=== PATIENT | male | born 1975 | race Caucasian/White ===

== ENCOUNTER 2017-09-28 18:26 | Inpatient (IN) | payer BC ==
[~2017-09-28] VITALS: Ht 182.9 cm; Wt 128.5 kg
[2017-09-28] VITALS (9 sets, daily range): BP systolic 95–135; BP diastolic 58–88; PULSE 82–96; TEMP 36.9–37; O2SAT 95–98; Ht 182.9 cm; Wt 128.5 kg
[2017-09-28] MEDS ORDERED: SODIUM CHLORIDE 0.9% 1000ML 1,000 ML IV SCH (18:28)
--- NOTE | 2017-09-28 18:31 | EMERGENCY ROOM VISIT NOTE ---
History Report prepared by Kady: Omar Rene Under the Supervision of: Dr. Brayden Quintana D.O. First contact with patient: 18:28 Stated Complaint: STROKE SX History of Present Illness The patient is a 41 year old male who presents to the Emergency Room with complaints of constant right sided weakness beginning about one hour ago. He currently rates his discomfort an 8/10 in severity. The patient states [place] He reports he developed neck pain in the back of his neck. The patient notes his symptoms increased to a severe headache in the back of his head. He states he went to lay down in the car because he thought it was a migraine. The patient reports he was feeling well before today. He notes he tried to get out of the car after lying down, and he could not move his body. The patient states his breathing is heavy, and he does not know if it is because he is anxious. He denies visiting a chiropractor recently , chest pain, nausea, and vomiting. EMS states the patient was sensitive to light and lying in the truck made him feel better. They reports his last time know well was 1716. Source of History: patient Onset: one hour ago Position: other (right sided) Symptom Intensity: 8/10 Quality: other (weakness) Timing: constant Modifying Factors (Relieving): other (lying down) Associated Symptoms: No chest pain, No nausea, No vomiting Note: Associated symptoms: heavy breathing Review of Systems See HPI for pertinent positives & negatives. A total of 10 systems reviewed and were otherwise negative. Past Medical & Surgical Family History Patient reports no known family medical history. Social History Alcohol Use: occasionally Marital Status: Occupation Status: employed Current/Historical Medications Scheduled Aspirin (Aspirin), 1 TAB PO DAILY Atorvastatin (Lipitor), 40 MG PO QAM Cetirizine (Zyrtec), 10 MG PO QAM Esomeprazole Magnesium (Nexium), 20 MG PO DAILY Fluticasone Propionate (Nasal) (Flonase Allergy Relief), 1 SPRAY MARIA DAILY Allergies Coded Allergies: No Known Allergies (Unverified , 09/28/17) Physical Exam Vital Signs Date Time Temp Pulse Resp B/P (MAP) Pulse Ox O2 Delivery O2 Flow Rate FiO2 09/28/17 19:57 37.0 96 20 128/88 95 Room Air 09/28/17 19:46 37.0 98 21 128/88 93 Room Air 09/28/17 19:30 37.0 102 22 113/79 97 Room Air 09/28/17 19:21 115 09/28/17 19:16 155/95 09/28/17 19:15 102 19 96 09/28/17 19:10 96 16 94 09/28/17 19:07 Room Air 09/28/17 19:05 95 26 96 09/28/17 19:01 141/83 09/28/17 18:33 96 28 144/91 Room Air Physical Exam GENERAL: Patient is awake, alert, and in no acute distress. Patient is resting comfortably and is very anxious appearing. EYES: The conjunctivae are clear. The pupils are round and reactive. EARS, NOSE, MOUTH AND THROAT: The nose is without any evidence of any deformity. Mucous membranes are moist tongue is midline NECK: The neck is nontender and supple. No bruit to auscultation. RESPIRATORY: Normal respiratory effort is noted there is no evidence of wheezing rhonchi or rales CARDIOVASCULAR: Regular rate and rhythm noted there no murmurs rubs or gallops normal S1 normal S2 GASTROINTESTINAL: The abdomen is soft. Bowel sounds are present in all quadrants. Abdomen is nontender MUSCULOSKELETAL/EXTREMITIES: There is no evidence of gross deformity full range of motion is noted in the hips and shoulders SKIN: There is no obvious evidence of any rash. There are no petechiae, pallor or cyanosis noted. NEUROLOGIC: Awake, alert, and oriented x 3. No facial droop appreciated. Patient is unable to lift right leg off the bed against gravity. The patient is able to lift left leg properly. 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 Medical Decision & Procedures ER Provider Diagnostic Interpretation: Radiology results as stated below per my review and radiologist interpretation: CT SCAN OF THE BRAIN WITHOUT IV CONTRAST CLINICAL HISTORY: Strokelike symptoms. COMPARISON STUDY: No priors. TECHNIQUE: Unenhanced axial CT scan of the brain is performed from the vertex to the skull base. A dose lowering technique was utilized adhering to the principles of ALARA. CT DOSE: 614.27 mGy.cm FINDINGS: Brain parenchyma: The brain parenchyma is normal in appearance. There is no hemorrhage, mass effect, or evidence of acute territorial ischemia by CT criteria. Montoya-white matter is preserved. No extra-axial fluid collection is seen. Ventricles, sulci, cisterns: Normal in configuration. Intracranial vasculature: The visualized intracranial vasculature at the skull base is normal in appearance. Calvarium: Unremarkable. Sinuses and mastoids: Trace mucosal thickening is seen in the left maxillary antrum. The remaining visualized paranasal sinuses are clear. There is a small left mastoid effusion. The right mastoid air cells are well pneumatized. Orbits: The bony orbits are grossly intact. IMPRESSION: There is no hemorrhage, mass effect, or evidence of acute territorial ischemia by CT criteria. Electronically signed by: Luis Varela M.D. 09/28/2017 6:37 PM Dictated Date/Time: 09/28/2017 6:35 PM SINGLE VIEW CHEST CLINICAL HISTORY: Strokelike symptoms. FINDINGS: An AP, portable, upright chest radiograph is obtained. No prior studies are available for comparison at the time of dictation. The examination is degraded by portable technique and patient rotation. The heart is top normal for projection. The pulmonary vasculature is noncongested. No airspace consolidation or large pleural effusion is identified. No pneumothorax is seen. The bony thorax is grossly intact. Surgical anchors are noted in the humeral heads. IMPRESSION: No acute cardiopulmonary abnormality. Electronically signed by: Luis Varela M.D. 09/28/2017 7:49 PM Dictated Date/Time: 09/28/2017 7:[address] ANGIOGRAM OF THE BRAIN; CT ANGIOGRAM OF THE NECK CLINICAL HISTORY: Strokelike symptoms. COMPARISON STUDY: Unenhanced CT of the brain performed the same day 09/28/2017. TECHNIQUE: Following the IV administration of 118 of Optiray 320, CT angiogram of the head and neck was performed from the aortic arch to the vertex. Images are reviewed in the axial, sagittal, and coronal planes. 3-D MIPS images are created and assessed. IV contrast was administered without complication. All measurements were calculated based on NASCET criteria. A dose lowering technique was utilized adhering to the principles of ALARA. CT DOSE: 673.41 mGy.cm FINDINGS: Brain parenchyma: The brain parenchyma is normal in appearance. There is no hemorrhage, mass effect, or evidence of acute territorial ischemia by CT criteria. There is no evidence of enhancing mass lesion on the angiogram phase images. The ventricles, sulci, and cisterns are normal in configuration. Montoya-white matter differentiation is preserved. No extra-axial fluid collection is seen. Thoracic aorta: Visualized portions of the thoracic aorta are normal in caliber. The aortic arch demonstrates bovine anatomy. Right carotid arterial system: The right common carotid artery is widely patent, as are the right internal and external carotid arteries. No dissection is seen. Left carotid arterial system: The left common carotid artery is widely patent, as are the left internal and external carotid arteries. No dissection is seen. Vertebral arteries: The vertebral arteries are patent bilaterally. The right vertebral artery is diminutive and terminates in the right cervical soft tissues. Subclavian arteries: Widely patent bilaterally. Intracranial vasculature: There are large bilateral posterior communicating arteries. The internal carotid arteries are patent at the skull base, as are the anterior and middle cerebral arteries bilaterally. The vertebrobasilar system is diminutive. The basilar artery is patent, as are the posterior cerebral arteries. The left vertebral artery is dominant and supplies the right PICA. The right vertebral artery terminates in the posterior cervical soft tissues. There is no aneurysm, high-grade stenosis, or focal vessel cut off seen throughout the intracranial circulation. Jugular veins: Patent bilaterally. Dural sinuses: Patent. Lung apices: Partially visualized upper lobe lung parenchyma appears clear. Soft tissues: The visualized pharyngeal soft tissues are normal in appearance noting angiographic phase technique. The oropharyngeal airway appears widely patent. The salivary and thyroid glands are normal in appearance. No cervical lymphadenopathy is seen. Skeletal structures: The calvarium appears intact. The cervical spine is within normal limits. Sinuses and mastoids: Trace mucosal thickening is seen in the maxillary antra. The remaining paranasal sinuses are clear. There is a small left mastoid effusion. The right mastoid air cells are well pneumatized. IMPRESSION: 1. There is no evidence of hemorrhage, mass effect, or acute territorial ischemia by CT criteria. 2. Unremarkable CT angiogram of the brain. 3. Unremarkable CT angiogram of the neck. 4. The right vertebral artery is diminutive and terminates in the right posterior cervical soft tissues. Electronically signed by: Luis Varela M.D. 09/28/2017 7:23 PM Dictated Date/Time: 09/28/2017 7:12 PM Laboratory Results 09/28/17 18:42 Red Blood Count 5.16, Mean Corpuscular Volume 84.3, Mean Corpuscular Hemoglobin 29.5, Mean Corpuscular Hemoglobin Concent 34.9, Mean Platelet Volume 8.8, Neutrophils (%) (Auto) 65.1, Lymphocytes (%) (Auto) 24.9, Monocytes (%) (Auto) 6.9, Eosinophils (%) (Auto) 2.8, Basophils (%) (Auto) 0.2, Neutrophils # (Auto) 5.67, Lymphocytes # (Auto) 2.17, Monocytes # (Auto) 0.60, Eosinophils # (Auto) 0.24, Basophils # (Auto) 0.02 09/28/17 18:42 Test 09/28/17 18:42 09/28/17 18:46 09/28/17 19:01 09/28/17 19:25 White Blood Count 8.71 K/uL (4.8-10.8) Red Blood Count 5.16 M/uL (4.7-6.1) Hemoglobin 15.2 g/dL (14.0-18.0) Hematocrit 43.5 % (42-52) Mean Corpuscular Volume 84.3 fL (80-100) Mean Corpuscular Hemoglobin 29.5 pg (25-34) Mean Corpuscular Hemoglobin Concent 34.9 g/dl (32-36) Platelet Count 235 K/uL (130-400) Mean Platelet Volume 8.8 fL (7.4-10.4) Neutrophils (%) (Auto) 65.1 % Lymphocytes (%) (Auto) 24.9 % Monocytes (%) (Auto) 6.9 % Eosinophils (%) (Auto) 2.8 % Basophils (%) (Auto) 0.2 % Neutrophils # (Auto) 5.67 K/uL (1.4-6.5) Lymphocytes # (Auto) 2.17 K/uL (1.2-3.4) Monocytes # (Auto) 0.60 K/uL (0.11-0.59) Eosinophils # (Auto) 0.24 K/uL (0-0.5) Basophils # (Auto) 0.02 K/uL (0-0.2) RDW Standard Deviation 38.8 fL (36.4-46.3) RDW Coefficient of Variation 12.7 % (11.5-14.5) Immature Granulocyte % (Auto) 0.1 % Immature Granulocyte # (Auto) 0.01 K/uL (0.00-0.02) Prothrombin Time 10.4 SECONDS (9.0-12.0) Prothromb Time International Ratio 1.0 (0.9-1.1) Activated Partial Thromboplast Time 26.6 SECONDS (21.0-31.0) Partial Thromboplastin Ratio 1.0 Est Creatinine Clear Calc Drug Dose 129.4 ml/min Estimated GFR () 101.0 Estimated GFR (Non- 87.1 BUN/Creatinine Ratio 13.1 (10-20) Calcium Level 8.9 mg/dl (8.5-10.1) Magnesium Level 2.4 mg/dl (1.8-2.4) Total Creatine Kinase 282 U/L (39-308) Creatine Kinase MB 2.9 ng/ml (0.5-3.6) Troponin I < 0.015 ng/ml (0-0.045) Ethyl Alcohol mg/dL 104.0 mg/dl (0-3) Bedside Hemoglobin 14.3 g/dl (14.0-18.0) Bedside Hematocrit 42 % (42-52) Bedside Sodium 142 mEq/L (135-144) Bedside Potassium 4.2 mEq/L (3.3-5.0) Bedside Chloride 106 mEq/L (101-112) Bedside Total CO2 25 mEq/l (24-31) Anion Gap 17.0 mmol/L (16-25) Bedside Blood Urea Nitrogen 14 mg/dl (7-18) Bedside Creatinine 1.1 mg/dl (0.6-1.3) Bedside Glucose (other) 105 mg/dl (70-99) Bedside Ionized Calcium (Fab) 1.13 mmol/l (1.12-1.32) Bedside Glucose 102 mg/dl (70-99) Urine Opiates Screen NEG (NEG) Urine Methadone, Qualitative NEG (NEG) Urine Barbiturates NEG (NEG) Urine Phencyclidine (PCP) Level NEG (NEG) Ur Amphetamine/Methamphetamine NEG (NEG) MDMA (Ecstasy) Screen NEG (NEG) Urine Benzodiazepines Screen NEG (NEG) Urine Cocaine Metabolite NEG (NEG) Urine Marijuana (THC) NEG (NEG) Test 09/28/17 20:00 Laboratory results per my review. Medications Administered Medications (Trade) Dose Ordered Sig/Omayra Route Start Time Stop Time Status Last Admin Dose Admin Sodium Chloride 1,000 ml @ 50 mls/hr Q20H IV 09/28/17 18:28 09/28/17 22:17 DC 09/28/17 19:08 50 MLS/HR Alteplase, Recombinant 81 mg/ Empty Bag 81 ml @ 81 mls/hr ONE ONCE IV 09/28/17 19:00 09/28/17 19:59 DC 09/28/17 19:30 81 MLS/HR Alteplase, Recombinant 9 mg/ Syringe 9 ml @ 9 mls/min ONE ONCE IV 09/28/17 19:00 09/28/17 19:01 DC 09/28/17 19:28 9 MLS/MIN Acetaminophen (Tylenol Tab) 1,000 mg STK-MED ONCE PO 09/28/17 19:54 09/28/17 19:55 DC 09/28/17 19:57 1,000 MG Acetaminophen (Tylenol Tab) 650 mg Q4H PRN PO 09/28/17 20:00 09/29/17 13:05 DC 09/29/17 12:32 650 MG ECG Per My Interpretation Indication: weakness Rate (beats per minute): 89 Rhythm: normal sinus Findings: no ectopy, other (No acute ST segment abn) Comparison ECG Date: no prior available ED Course 1826: The patient was evaluated in room B01. A complete history and physical examination were performed. 1827: Ordered NSS 1,000 ml @ 50 mls/hr IV 1846: I discussed the patient's case with Dr. Penny, [facility]. The patient will be evaluated for a stroke work-up. 1899: Ordered Alteplase, Recombinant 9 mg/Syringe 9 ml @ 9 mls/min IV, Alteplase , Recombinant 81 mg/Syringe 81 ml @ 81 mls/min IV 1913: I attempted to reevaluate the patient, but he was being evaluated by Dr. Penny. 1918: I discussed the risks and benefits of administering t-PA to the patient. He verbalized consent. 1943: I updated Dr. Penny of the patient's status and t-PA administration. 1944: I discussed the patient's case with Dr. Lafleur, [facility] Hospitalist. The patient will be evaluated for further management and care. 1952: Ordered Acetaminophen 1000mg PO Medical Decision Differential diagnosis: Etiologies such as metabolic, infection, hypo/hyperglycemia, electrolyte abnormalities, cardiac sources, intracerebral event, toxicologic, neurologic, as well as others were entertained. Nursing notes reviewed. Additional history is obtained from the prehospital personnel. Additional history is obtained from the patient's family members. The patient is a 41-year-old male who presented to the emergency department with an acute onset of right-sided weakness. The patient had some degree of neck pain with pain into the base of his skull. He then noticed right-sided weakness. The patient does not have a headache history. There is no history of trauma. The patient's initial CAT scan did not show any acute hemorrhagic infarct. The patient also had a CT angiography of the head and neck with no definite acute disease noted. Given the patient's onset of symptoms I felt he may be a candidate for TPA. For this reason I consulted the [facility] stroke neurologist. The patient was given TPA in the emergency department. He was reevaluated multiple times. I discussed his case with the on-call [facility] [place] hospitalist. They have agreed to evaluate patient in the emergency department for further management and disposition. Medication Reconcilliation Current Medication List: was personally reviewed by me Blood Pressure Screening Patient's blood pressure: Normal blood pressure Blood pressure disposition: Did not require urgent referral Consults Time Called: 1843 Consulting Physician: Dr. Penny [facility] Returned Call: 1846 I discussed the patient's case with Dr. Penny, [facility]. The patient will be evaluated for a stroke work-up. 1943: I updated Dr. Penny of the patient's status and t-PA administration. Additional Consults: Time Called: 1927 Consulted Physician: Dr. Lafleur [facility] Hospitalist Returned Call: 1944 Additional Comments: I discussed the patient's case with Dr. Lafleur [facility] Hospitalist. The patient will be evaluated for further management and care. Impression Primary Impression: CVA (cerebral vascular accident) Additional Impression: Right sided weakness Critical Care I have personally spent greater than 45 minutes of critical care time in the direct management of this patient. This includes bedside care, interpretation of diagnostic studies, and testing, discussion with consultants, patient, and family members, and other required patient management activities. This 45 minutes is in excess of all separately billable procedures. Scribe Attestation The scribe's documentation has been prepared under my direction and personally reviewed by me in its entirety. I confirm that the note above accurately reflects all work, treatment, procedures, and medical decision making performed by me. Departure Information Dispostion Being Evaluated By Hospitalist Prescriptions Aspirin (Aspirin) 325 Mg Ectab 1 TAB PO DAILY, #1 BTL Prov: Aries Pearl M.D. 09/29/17 Atorvastatin (LIPITOR) 40 Mg Tab 40 MG PO QAM, #30 TAB Prov: Aries Pearl M.D. 09/29/17 Referrals No Doctor, Assigned (PCP) Time Last Known Well 1716 Stroke t-PA Criteria Reviewed Meets criteria for t-PA Reason t-PA Not Given Treatment provided - N/A Problem Qualifiers Primary Impression: CVA (cerebral vascular accident) CVA mechanism: unspecified Qualified Codes: I63.9 - Cerebral infarction, unspecified
--- NOTE | 2017-09-28 18:39 | DIAGNOSTIC IMAGING REPORT ---
CT SCAN OF THE BRAIN WITHOUT IV CONTRAST CLINICAL HISTORY: Strokelike symptoms. COMPARISON STUDY: No priors. TECHNIQUE: Unenhanced axial CT scan of the brain is performed from the vertex to the skull base. A dose lowering technique was utilized adhering to the principles of ALARA. CT DOSE: 614.27 mGy.cm FINDINGS: Brain parenchyma: The brain parenchyma is normal in appearance. There is no hemorrhage, mass effect, or evidence of acute territorial ischemia by CT criteria. Montoya-white matter is preserved. No extra-axial fluid collection is seen. Ventricles, sulci, cisterns: Normal in configuration. Intracranial vasculature: The visualized intracranial vasculature at the skull base is normal in appearance. Calvarium: Unremarkable. Sinuses and mastoids: Trace mucosal thickening is seen in the left maxillary antrum. The remaining visualized paranasal sinuses are clear. There is a small left mastoid effusion. The right mastoid air cells are well pneumatized. Orbits: The bony orbits are grossly intact. IMPRESSION: There is no hemorrhage, mass effect, or evidence of acute territorial ischemia by CT criteria. Electronically signed by: Luis Varela M.D. 09/28/2017 6:37 PM Dictated Date/Time: 09/28/2017 6:35 PM
[2017-09-28 18:59] LABS: ISTAT CREATININE 1.1 mg/dl (0.6-1.3); ISTAT IONIZED CALCIUM 1.13 mmol/l (1.12-1.32); ISTAT POTASSIUM 4.2 mEq/L (3.3-5.0)
[2017-09-28] MEDS ORDERED: ALTEPLASE, RECOMBINANT INJ 9 MG in SYRINGE 0 ML IV ONE (19:00)
[2017-09-28] MEDS ORDERED: ALTEPLASE, RECOMBINANT INJ 81 MG in EMPTY BAG 0 ML IV ONE (19:00)
[2017-09-28] MEDS ORDERED: SET 2260-0500 IV ONE (19:00)
[2017-09-28 19:04] LABS: BASO % 0.2 %; BASO ABS # 0.02 K/uL (0-0.2); EOS % 2.8 %; EOS ABS # 0.24 K/uL (0-0.5); HEMATOCRIT 43.5 % (42-52); HEMOGLOBIN 15.2 g/dL (14.0-18.0); IG# 0.01 K/uL (0.00-0.02); LYMPH % 24.9 %; LYMPH ABS # 2.17 K/uL (1.2-3.4); MEAN CELL VOLUME 84.3 fL (80-100); MEAN CORPUSCULAR HEMOGLOBIN 29.5 pg (25-34); MEAN CORPUSCULAR HGB CONC 34.9 g/dl (32-36); MEAN PLATELET VOLUME 8.8 fL (7.4-10.4); MONO % 6.9 %; NEUT % 65.1 %; NEUT ABS # 5.67 K/uL (1.4-6.5); PLATELET COUNT 235 K/uL (130-400); RED CELL DISTRIBUTION WIDTH CV 12.7 % (11.5-14.5); RED CELL DISTRIBUTION WIDTH SD 38.8 fL (36.4-46.3); WHITE BLOOD COUNT 8.71 K/uL (4.8-10.8)
[2017-09-28 19:14] LABS: PTT PATIENT 26.6 SECONDS (21.0-31.0)
[2017-09-28 19:16] LABS: BLOOD UREA NITROGEN 14 mg/dl (7-18); CALCIUM 8.9 mg/dl (8.5-10.1); CARBON DIOXIDE 25 mmol/L (21-32); CREATININE 1.05 mg/dl (0.60-1.40); GLUCOSE 102 mg/dl (70-99); POTASSIUM 4.2 mmol/L (3.5-5.1); SODIUM 141 mmol/L (136-145)
[2017-09-28 19:21] LABS: CKMB 2.9 ng/ml (0.5-3.6)
--- NOTE | 2017-09-28 19:24 | DIAGNOSTIC IMAGING REPORT ---
CT ANGIOGRAM OF THE BRAIN; CT ANGIOGRAM OF THE NECK CLINICAL HISTORY: Strokelike symptoms. COMPARISON STUDY: Unenhanced CT of the brain performed the same day 09/28/2017. TECHNIQUE: Following the IV administration of 118 of Optiray 320, CT angiogram of the head and neck was performed from the aortic arch to the vertex. Images are reviewed in the axial, sagittal, and coronal planes. 3-D MIPS images are created and assessed. IV contrast was administered without complication. All measurements were calculated based on NASCET criteria. A dose lowering technique was utilized adhering to the principles of ALARA. CT DOSE: 673.41 mGy.cm FINDINGS: Brain parenchyma: The brain parenchyma is normal in appearance. There is no hemorrhage, mass effect, or evidence of acute territorial ischemia by CT criteria. There is no evidence of enhancing mass lesion on the angiogram phase images. The ventricles, sulci, and cisterns are normal in configuration. Montoya-white matter differentiation is preserved. No extra-axial fluid collection is seen. Thoracic aorta: Visualized portions of the thoracic aorta are normal in caliber. The aortic arch demonstrates bovine anatomy. Right carotid arterial system: The right common carotid artery is widely patent, as are the right internal and external carotid arteries. No dissection is seen. Left carotid arterial system: The left common carotid artery is widely patent, as are the left internal and external carotid arteries. No dissection is seen. Vertebral arteries: The vertebral arteries are patent bilaterally. The right vertebral artery is diminutive and terminates in the right cervical soft tissues. Subclavian arteries: Widely patent bilaterally. Intracranial vasculature: There are large bilateral posterior communicating arteries. The internal carotid arteries are patent at the skull base, as are the anterior and middle cerebral arteries bilaterally. The vertebrobasilar system is diminutive. The basilar artery is patent, as are the posterior cerebral arteries. The left vertebral artery is dominant and supplies the right PICA. The right vertebral artery terminates in the posterior cervical soft tissues. There is no aneurysm, high-grade stenosis, or focal vessel cut off seen throughout the intracranial circulation. Jugular veins: Patent bilaterally. Dural sinuses: Patent. Lung apices: Partially visualized upper lobe lung parenchyma appears clear. Soft tissues: The visualized pharyngeal soft tissues are normal in appearance noting angiographic phase technique. The oropharyngeal airway appears widely patent. The salivary and thyroid glands are normal in appearance. No cervical lymphadenopathy is seen. Skeletal structures: The calvarium appears intact. The cervical spine is within normal limits. Sinuses and mastoids: Trace mucosal thickening is seen in the maxillary antra. The remaining paranasal sinuses are clear. There is a small left mastoid effusion. The right mastoid air cells are well pneumatized. IMPRESSION: 1. There is no evidence of hemorrhage, mass effect, or acute territorial ischemia by CT criteria. 2. Unremarkable CT angiogram of the brain. 3. Unremarkable CT angiogram of the neck. 4. The right vertebral artery is diminutive and terminates in the right posterior cervical soft tissues. Electronically signed by: Luis Varela M.D. 09/28/2017 7:23 PM Dictated Date/Time: 09/28/2017 7:12 PM
--- NOTE | 2017-09-28 19:50 | DIAGNOSTIC IMAGING REPORT ---
SINGLE VIEW CHEST CLINICAL HISTORY: Strokelike symptoms. FINDINGS: An AP, portable, upright chest radiograph is obtained. No prior studies are available for comparison at the time of dictation. The examination is degraded by portable technique and patient rotation. The heart is top normal for projection. The pulmonary vasculature is noncongested. No airspace consolidation or large pleural effusion is identified. No pneumothorax is seen. The bony thorax is grossly intact. Surgical anchors are noted in the humeral heads. IMPRESSION: No acute cardiopulmonary abnormality. Electronically signed by: Luis Varela M.D. 09/28/2017 7:49 PM Dictated Date/Time: 09/28/2017 7:48 PM
[2017-09-28] MEDS ORDERED: ACETAMINOPHEN 500 MG TAB PO STA (19:53)
[2017-09-28] MEDS ORDERED: ACETAMINOPHEN 500 MG TAB PO ONE (19:54)
[2017-09-28] MEDS ORDERED: ACETAMINOPHEN 325 MG TAB PO PRN (20:00)
[2017-09-28] MEDS ORDERED: LORAZEPAM 2 MG/ML 1 ML VIAL IV PRN (20:00)
[2017-09-28] MEDS ORDERED: PHARMACIST DISCHARGE MED REC CONSULT PRN (20:00)
[2017-09-28] MEDS ORDERED: ICU PROTOCOL FOR HYPERGLYCEMIA PRN (20:00)
--- NOTE | 2017-09-28 20:11 | History and Physical ---
History & Physical Date & Time of Service: Sep 28, 2017 at 20:11 Chief Complaint: Stroke Sx Primary Care Physician: No Doctor, Assigned History of Present Illness Source: patient, hospital records The patient is a 41-year-old male who presents to the emergency department with complaint of sudden onset of right sided weakness that began about 1 hour prior to arrival. The patient reports he was at the blue weight gain, as he walked back to his car he developed a pain in the back of his neck up the back of his head that increased in severity. He then laid down in the car to see if this was a migraine headache, but when he tried to get up out of the car he cannot move the right side of his body. The patient was received at the emergency department as a stroke alert, and Dr. Quintana underwent a conversation with the stroke neurologist from [facility], and decision was made to start the patient on TPA. The patient did undergo a CT of the brain without contrast, and CT angiography of the head and neck, all of which were negative. While in the emergency department, the patient's stroke scale gradually improved , and he was able to lift his right arm more normally up above his head but not completely back to normal. The patient was then admitted to the ICU via a stroke with TPA protocol order set,, and did undergo an MRI of brain en route to the ICU, which was later reported as normal. Past Medical/Surgical History Medical Problems: (1) CVA (cerebral vascular accident) (2) Right sided weakness Family History Noncontributory Social History Smoking Status: Former Smoker Smokeless Tobacco Use: No Alcohol Use: socially Drug Use: none Marital Status: Housing status: lives with family Occupational Status: employed Immunizations History of Influenza Vaccine: Unknown History of Tetanus Vaccine?: Unknown History of Pneumococcal: No History of Hepatitis B Vaccine: Unknown Allergies Coded Allergies: No Known Allergies (Unverified , 09/28/17) Home Medications Scheduled Cetirizine (Zyrtec), 10 MG PO QAM Esomeprazole Magnesium (Nexium), 20 MG PO DAILY Fluticasone Propionate (Nasal) (Flonase Allergy Relief), 1 SPRAY MARIA DAILY Review of Systems The patient denies chest pain, palpitations, dyspnea on exertion, cough, lower extremity swelling, sore throat, fevers, chills, sweats, weight change, fatigue, nausea, vomiting, diarrhea , constipation, abdominal pain, pelvic pain, blood in urine or stool, dysuria, urinary frequency or urgency, memory loss, loss of consciousness, rash, abnormal bruising or bleeding, imbalance, generalized arthralgias or myalgias, back or neck pain, or night sweats. The review of systems is otherwise negative other than for that already noted above, and at least 10 systems have been reviewed. Physical Exam Vital Signs Date Time Temp Pulse Resp B/P (MAP) Pulse Ox O2 Delivery O2 Flow Rate FiO2 09/28/17 20:03 98 21 134/83 93 Room Air 09/28/17 19:57 37.0 96 20 128/88 95 Room Air 09/28/17 19:46 98 21 128/88 93 Room Air 09/28/17 19:30 102 22 113/79 97 Room Air 09/28/17 19:21 115 09/28/17 19:16 155/95 09/28/17 19:15 102 19 96 09/28/17 19:10 96 16 94 09/28/17 19:07 Room Air 09/28/17 19:05 95 26 96 09/28/17 19:01 141/83 09/28/17 18:33 96 28 144/91 Room Air The patient is awake, alert and oriented 3, well developed and well nourished, normocephalic and atraumatic, lying in bed and in no acute distress. HEENT--PERRL, EOMI, mucous membranes and oropharynx dry. Neck--supple. No JVD. No bruits. Thyroid normal, trachea midline, no adenopathy. Heart--normal S1 and S2. No murmurs, rubs or gallops. Lungs--clear bilaterally, no respiratory distress, no accessory muscle use. Abdomen--normal bowel sounds and soft. Nontender. Nondistended, no hernias or masses, no organomegaly. Extremities--no cyanosis or clubbing. No edema. There are good distal pulses b/ l. Dermatologic--normal skin turgor, normal color, no abnormal lymph nodes, no rash. Neurologic/rheumatologic--cranial nerves II through XII grossly intact. The patient was initially not able to lift right leg off of the bed against gravity , with the left leg being normal. 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 Psychiatric--anxious affect. Diagnostics Laboratory Results Results Past 24 Hours Test 09/28/17 18:42 09/28/17 18:46 09/28/17 19:25 Range/Units White Blood Count 8.71 4.8-10.8 K/uL Red Blood Count 5.16 4.7-6.1 M/uL Hemoglobin 15.2 14.0-18.0 g/dL Hematocrit 43.5 42-52 % Mean Corpuscular Volume 84.3 80-100 fL Mean Corpuscular Hemoglobin 29.5 25-34 pg Mean Corpuscular Hemoglobin Concent 34.9 32-36 g/dl Platelet Count 235 130-400 K/uL Mean Platelet Volume 8.8 7.4-10.4 fL Neutrophils (%) (Auto) 65.1 % Lymphocytes (%) (Auto) 24.9 % Monocytes (%) (Auto) 6.9 % Eosinophils (%) (Auto) 2.8 % Basophils (%) (Auto) 0.2 % Neutrophils # (Auto) 5.67 1.4-6.5 K/uL Lymphocytes # (Auto) 2.17 1.2-3.4 K/uL Monocytes # (Auto) 0.60 0.11-0.59 K/uL Eosinophils # (Auto) 0.24 0-0.5 K/uL Basophils # (Auto) 0.02 0-0.2 K/uL RDW Standard Deviation 38.8 36.4-46.3 fL RDW Coefficient of Variation 12.7 11.5-14.5 % Immature Granulocyte % (Auto) 0.1 % Immature Granulocyte # (Auto) 0.01 0.00-0.02 K/uL Prothrombin Time 10.4 9.0-12.0 SECONDS Prothromb Time International Ratio 1.0 0.9-1.1 Activated Partial Thromboplast Time 26.6 21.0-31.0 SECONDS Partial Thromboplastin Ratio 1.0 Sodium Level 141 136-145 mmol/L Potassium Level 4.2 3.5-5.1 mmol/L Chloride Level 109 98-107 mmol/L Carbon Dioxide Level 25 21-32 mmol/L Anion Gap 7.0 17.0 16-25 mmol/L Blood Urea Nitrogen 14 7-18 mg/dl Creatinine 1.05 0.60-1.40 mg/dl Est Creatinine Clear Calc Drug Dose 129.4 ml/min Estimated GFR () 101.0 Estimated GFR (Non- 87.1 BUN/Creatinine Ratio 13.1 10-20 Random Glucose 102 70-99 mg/dl Calcium Level 8.9 8.5-10.1 mg/dl Magnesium Level 2.4 1.8-2.4 mg/dl Total Creatine Kinase 282 39-308 U/L Creatine Kinase MB 2.9 0.5-3.6 ng/ml Creatine Kinase MB Ratio 1.0 0-3.0 Troponin I < 0.015 0-0.045 ng/ml Ethyl Alcohol mg/dL 104.0 0-3 mg/dl Bedside Hemoglobin 14.3 14.0-18.0 g/dl Bedside Hematocrit 42 42-52 % Bedside Sodium 142 135-144 mEq/L Bedside Potassium 4.2 3.3-5.0 mEq/L Bedside Chloride 106 101-112 mEq/L Bedside Total CO2 25 24-31 mEq/l Bedside Blood Urea Nitrogen 14 7-18 mg/dl Bedside Creatinine 1.1 0.6-1.3 mg/dl Bedside Glucose (other) 105 70-99 mg/dl Bedside Ionized Calcium (Fab) 1.13 1.12-1.32 mmol/l Diagnostic Radiology Patient Name: FARNAZ BO Unit Number: [id number] Dictated: 09/28/171834 Transcribed: 09/28/171834 EV Printed Date/Time: [~ rep prt dt]/[~ rep prt tm] [~ rep ct labl] - [~ rep ct ivnm] [facility] Radiology Department [place], [place] [id number] Dictated: 09/28/171834 Transcribed: 09/28/171834 EV Printed Date/Time: [~ rep prt dt]/[~ rep prt tm] [~ rep ct labl] - [~ rep ct ivnm] CT SCAN OF THE BRAIN WITHOUT IV CONTRAST CLINICAL HISTORY: Strokelike symptoms. COMPARISON STUDY: No priors. TECHNIQUE: Unenhanced axial CT scan of the brain is performed from the vertex to the skull base. A dose lowering technique was utilized adhering to the principles of ALARA. CT DOSE: 614.27 mGy.cm FINDINGS: Brain parenchyma: The brain parenchyma is normal in appearance. There is no hemorrhage, mass effect, or evidence of acute territorial ischemia by CT criteria. Montoya-white matter is preserved. No extra-axial fluid collection is seen. Ventricles, sulci, cisterns: Normal in configuration. Intracranial vasculature: The visualized intracranial vasculature at the skull base is normal in appearance. Calvarium: Unremarkable. Sinuses and mastoids: Trace mucosal thickening is seen in the left maxillary antrum. The remaining visualized paranasal sinuses are clear. There is a small left mastoid effusion. The right mastoid air cells are well pneumatized. Orbits: The bony orbits are grossly intact. IMPRESSION: There is no hemorrhage, mass effect, or evidence of acute territorial ischemia by CT criteria. Electronically signed by: Luis Varela M.D. 09/28/2017 6:37 PM Dictated Date/Time: 09/28/2017 6:35 PM The status of this report is Signed. Draft = Not yet reviewed or approved by Radiologist. Signed = Reviewed and approved by Radiologist. <AttendingPhy></AttendingPhy> <FamilyPhy>No Doctor, Assigned</FamilyPhy> < PrimaryPhy>No Doctor, Assigned</PrimaryPhy> <UnitNumber>[id number]</UnitNumber> <VisitNumber>[id number]</VisitNumber> <PatientName>ANUPAMFARNAZ PETERSEN</PatientName> < DateOfBirth>1975</DateOfBirth> <Location>[facility]</Location> <ServiceDate></ServiceDate> <MNE>ESINDI</MNE> <OrderingPhy>Brayden Quintana D.O.</ OrderingPhy> <OrderingPhyMNE>f rep ord dr steven</OrderingPhyMNE> <DictatingPhyMNE> f rep dict dr steven</DictatingPhyMNE> <CCListMNE>f rep ct maurizio</CCListMNE> < AdmittingPhyMNE>f pt admit dr steven</AdmittingPhyMNE> <AttendingPhyMNE>f pt attend dr steven</AttendingPhyMNE> <ConsultingPhyMNE>f pt consult dr steven</ConsultingPhyMNE> <FamilyPhyMNE>f pt fam dr steven</FamilyPhyMNE> <OtherPhyMNE>f pt other dr steven</OtherPhyMNE> < PrimaryPhyMNE>f pt prim care dr steven</PrimaryPhyMNE> <ReferringPhyMNE>f pt referring dr steven</ReferringPhyMNE> Patient Name: FARNAZ BO Unit Number: [id number] Dictated: 09/28/171947 Transcribed: 09/28/171947 EV Printed Date/Time: [~ rep prt dt]/[~ rep prt tm] [~ rep ct labl] - [~ rep ct ivnm] [facility] [address] Radiology Department [place], [place] [id number] Dictated: 09/28/171947 Transcribed: 09/28/171947 EV Printed Date/Time: [~ rep prt dt]/[~ rep prt tm] [~ rep ct labl] - [~ rep ct ivnm] SINGLE VIEW CHEST CLINICAL HISTORY: Strokelike symptoms. FINDINGS: An AP, portable, upright chest radiograph is obtained. No prior studies are available for comparison at the time of dictation. The examination is degraded by portable technique and patient rotation. The heart is top normal for projection. The pulmonary vasculature is noncongested. No airspace consolidation or large pleural effusion is identified. No pneumothorax is seen. The bony thorax is grossly intact. Surgical anchors are noted in the humeral heads. IMPRESSION: No acute cardiopulmonary abnormality. Electronically signed by: Luis Varela M.D. 09/28/2017 7:49 PM Dictated Date/Time: 09/28/2017 7:48 PM The status of this report is Signed. Draft = Not yet reviewed or approved by Radiologist. Signed = Reviewed and approved by Radiologist. <AttendingPhy></AttendingPhy> <FamilyPhy>No Doctor, Assigned</FamilyPhy> < PrimaryPhy>No Doctor, Assigned</PrimaryPhy> <UnitNumber>[id number]</UnitNumber> <VisitNumber>[id number]</VisitNumber> <PatientName>FARNAZ BO</PatientName > <DateOfBirth>1975</DateOfBirth> <Location>C[facility]</Location> <ServiceDate> 09/28/17</ServiceDate> <MNE>ESINDI</MNE> <OrderingPhy>Brayden Quintana D.O.</ OrderingPhy> <OrderingPhyMNE>f rep ord dr steven</OrderingPhyMNE> <DictatingPhyMNE> f rep dict dr steven</DictatingPhyMNE> <CCListMNE>f rep ct mne</CCListMNE> < AdmittingPhyMNE>f pt admit dr steven</AdmittingPhyMNE> <AttendingPhyMNE>f pt attend dr steven</AttendingPhyMNE> <ConsultingPhyMNE>f pt consult dr steven</ConsultingPhyMNE> <FamilyPhyMNE>f pt fam dr steven</FamilyPhyMNE> <OtherPhyMNE>f pt other dr steven</OtherPhyMNE> < PrimaryPhyMNE>f pt prim care dr steven</PrimaryPhyMNE> <ReferringPhyMNE>f pt referring dr steven</ReferringPhyMNE> Patient Name: FARNAZ BO Unit Number: [id number] Dictated: 09/28/171911 Transcribed: 09/28/171911 EV Printed Date/Time: [~ rep prt dt]/[~ rep prt tm] [~ rep ct labl] - [~ rep ct ivnm] [facility] [address] [place] [address] Dictated: 09/28/171911 Transcribed: 09/28/171911 EV Printed Date/Time: [~ rep prt dt]/[~ rep prt tm] [~ rep ct labl] - [~ rep ct ivnm] [~ rep ct add3]] CT ANGIOGRAM OF THE BRAIN; CT ANGIOGRAM OF THE NECK CLINICAL HISTORY: Strokelike symptoms. COMPARISON STUDY: Unenhanced CT of the brain performed the same day 09/28/2017. TECHNIQUE: Following the IV administration of 118 of Optiray 320, CT angiogram of the head and neck was performed from the aortic arch to the vertex. Images are reviewed in the axial, sagittal, and coronal planes. 3-D MIPS images are created and assessed. IV contrast was administered without complication. All measurements were calculated based on NASCET criteria. A dose lowering technique was utilized adhering to the principles of ALARA. CT DOSE: 673.41 mGy.cm FINDINGS: Brain parenchyma: The brain parenchyma is normal in appearance. There is no hemorrhage, mass effect, or evidence of acute territorial ischemia by CT criteria. There is no evidence of enhancing mass lesion on the angiogram phase images. The ventricles, sulci, and cisterns are normal in configuration. Montoya-white matter differentiation is preserved. No extra-axial fluid collection is seen. Thoracic aorta: Visualized portions of the thoracic aorta are normal in caliber. The aortic arch demonstrates bovine anatomy. Right carotid arterial system: The right common carotid artery is widely patent, as are the right internal and external carotid arteries. No dissection is seen. Left carotid arterial system: The left common carotid artery is widely patent, as are the left internal and external carotid arteries. No dissection is seen. Vertebral arteries: The vertebral arteries are patent bilaterally. The right vertebral artery is diminutive and terminates in the right cervical soft tissues. Subclavian arteries: Widely patent bilaterally. Intracranial vasculature: There are large bilateral posterior communicating arteries. The internal carotid arteries are patent at the skull base, as are the anterior and middle cerebral arteries bilaterally. The vertebrobasilar system is diminutive. The basilar artery is patent, as are the posterior cerebral arteries. The left vertebral artery is dominant and supplies the right PICA. The right vertebral artery terminates in the posterior cervical soft tissues. There is no aneurysm, high-grade stenosis, or focal vessel cut off seen throughout the intracranial circulation. Jugular veins: Patent bilaterally. Dural sinuses: Patent. Lung apices: Partially visualized upper lobe lung parenchyma appears clear. Soft tissues: The visualized pharyngeal soft tissues are normal in appearance noting angiographic phase technique. The oropharyngeal airway appears widely patent. The salivary and thyroid glands are normal in appearance. No cervical lymphadenopathy is seen. Skeletal structures: The calvarium appears intact. The cervical spine is within normal limits. Sinuses and mastoids: Trace mucosal thickening is seen in the maxillary antra. The remaining paranasal sinuses are clear. There is a small left mastoid effusion. The right mastoid air cells are well pneumatized. IMPRESSION: 1. There is no evidence of hemorrhage, mass effect, or acute territorial ischemia by CT criteria. 2. Unremarkable CT angiogram of the brain. 3. Unremarkable CT angiogram of the neck. 4. The right vertebral artery is diminutive and terminates in the right posterior cervical soft tissues. Electronically signed by: Luis Varela M.D. 09/28/2017 7:23 PM Dictated Date/Time: 09/28/2017 7:12 PM The status of this report is Signed. Draft = Not yet reviewed or approved by Radiologist. Signed = Reviewed and approved by Radiologist. <AttendingPhy></AttendingPhy> <FamilyPhy>No Doctor, Assigned</FamilyPhy> < PrimaryPhy>No Doctor, Assigned</PrimaryPhy> <UnitNumber>[id number]</UnitNumber> <VisitNumber>[id number]</VisitNumber> <PatientName>ANUPAMFARNAZ Himanshu</PatientName > <DateOfBirth>1975</DateOfBirth> <Location>[facility]</Location> <ServiceDate> 09/28/17</ServiceDate> <MNE>ESINDI</MNE> <OrderingPhy>Brayden Quintana D.O.</ OrderingPhy> <OrderingPhyMNE>f rep ord dr steven</OrderingPhyMNE> <DictatingPhyMNE> f rep dict dr steven</DictatingPhyMNE> <CCListMNE>f rep ct mne</CCListMNE> < AdmittingPhyMNE>f pt admit dr steven</AdmittingPhyMNE> <AttendingPhyMNE>f pt attend dr steven</AttendingPhyMNE> <ConsultingPhyMNE>f pt consult dr steven</ConsultingPhyMNE> <FamilyPhyMNE>f pt fam dr steven</FamilyPhyMNE> <OtherPhyMNE>f pt other dr steven</OtherPhyMNE> < PrimaryPhyMNE>f pt prim care dr steven</PrimaryPhyMNE> <ReferringPhyMNE>f pt referring dr steven</ReferringPhyMNE> Patient Name: ANUPAMFARNAZ Himanshu Unit Number: [id number] Dictated: 09/28/172203 Transcribed: 09/28/172203 EV Printed Date/Time: [~ rep prt dt]/[~ rep prt tm] [~ rep ct labl] - [~ rep ct ivnm] [facility] [address] [place] [address] Dictated: 09/28/172203 Transcribed: 09/28/172203 EV Printed Date/Time: [~ rep prt dt]/[~ rep prt tm] [~ rep ct labl] - [~ rep ct ivnm] MRI OF THE BRAIN WITHOUT IV CONTRAST CLINICAL HISTORY: Right-sided weakness. COMPARISON STUDY: CT and CT angiogram of the brain dated 09/28/2017. TECHNIQUE: MRI of the brain was performed utilizing various T1 and T2-weighted sequences in the axial, sagittal, and coronal planes. IV contrast was not administered for this examination. The examination is modestly degraded by motion artifact. FINDINGS: Brain parenchyma: The brain parenchyma is normal in appearance. There is no hemorrhage or mass effect. There is no restricted diffusion to suggest acute ischemia. Montoya-white matter differentiation is preserved. No extra-axial fluid collection is seen. The cerebellar tonsils are normal in configuration. Ventricles, sulci, and cisterns: Normal in configuration. Pituitary and sella: Unremarkable. Intracranial vasculature: Normal flow voids are maintained at the skull base. Orbits: The bony orbits are grossly intact. Orbital contents are normal in appearance. Sinuses and mastoids: There is a small left mastoid effusion. The right mastoid air cells are clear. Mild mucosal thickening is seen within the maxillary antra. The remaining paranasal sinuses are clear. Calvarium: Unremarkable. Cervical cord: Partially visualized cervical spinal cord is normal in morphology and signal intensity. IMPRESSION: No acute intracranial abnormality. Electronically signed by: Luis Varela M.D. 09/28/2017 10:07 PM Dictated Date/Time: 09/28/2017 10:04 PM The status of this report is Signed. Draft = Not yet reviewed or approved by Radiologist. Signed = Reviewed and approved by Radiologist. <AttendingPhy></AttendingPhy> <FamilyPhy>No Doctor, Assigned</FamilyPhy> < PrimaryPhy>No Doctor, Assigned</PrimaryPhy> <UnitNumber>[id number]</UnitNumber> <VisitNumber>[id number]</VisitNumber> <PatientName>FARNAZ BO</PatientName > <DateOfBirth>1975</DateOfBirth> <Location>[facility]</Location> <ServiceDate> 09/28/17</ServiceDate> <MNE>ESINDI</MNE> <OrderingPhy>Leif Lafleur M.D.< /OrderingPhy> <OrderingPhyMNE>f rep ord dr steven</OrderingPhyMNE> <DictatingPhyMNE >f rep dict dr steven</DictatingPhyMNE> <CCListMNE>f rep ct annae</CCListMNE> < AdmittingPhyMNE>f pt admit dr steven</AdmittingPhyMNE> <AttendingPhyMNE>f pt attend dr steven</AttendingPhyMNE> <ConsultingPhyMNE>f pt consult dr steven</ConsultingPhyMNE> <FamilyPhyMNE>f pt fam dr steven</FamilyPhyMNE> <OtherPhyMNE>f pt other dr steven</OtherPhyMNE> < PrimaryPhyMNE>f pt prim care dr steven</PrimaryPhyMNE> <ReferringPhyMNE>f pt referring dr steven</ReferringPhyMNE> EKG FARNAZ BO ID:[id number] 28-SEP-2017 19:03:21 [facility] Normal sinus rhythm Normal ECG No previous ECGs available 25mm/s 10mm/mV 150Hz 8.0 SP2 12SL 241 HD LEYLA: 12 Referred by: Referred Self Unconfirmed Vent. rate 89 BPM TX interval 162 ms QRS duration 96 ms QT/QTc 352/428 ms P-R-T axes 29 39 26 1975 (41 yr) Male Room: Loc:15 Impression Assessment and Plan Acute CVA with right lower extremity greater than right upper extremity weakness , with cervical and occipital headache-- The patient will be admitted to the ICU for CVA with TPA protocol order set. Order serial cardiac enzymes, serial EKG's, cardiac rhythm monitoring and a 2- D echocardiogram with Dopplers. Consult PT/OT/neurology/manager social media. Check a fasting lipid panel and hemoglobin A1c. Order hypercoagulable workup, as brain structure and circulation are normal on all imaging studies. Start Lipitor 40 mg p.o. daily. Aspirin 81 mg p.o. daily. Blood pressure and heart rate are adequately controlled. GERD-- Change Nexium to pantoprazole. Advanced Directives Existing Advance Directive: No Existing Living Will: No Existing Power of Community Health Advocate: No Resuscitation Status VTE Prophylaxis Will order VTE Prophylaxis: Yes Note Total Time: Critical Care 30 - 74 minutes
[2017-09-28] MEDS ORDERED: CETI10TA84 PO (20:27)
[2017-09-28] MEDS ORDERED: ESOM20CA PO (20:28)
[2017-09-28] MEDS ORDERED: FLUT0.15 NAE (20:29)
--- NOTE | 2017-09-28 21:01 | Critical Care Consultation ---
Critical Care Consultation Date of Consultation: Sep 28, 2017. Attending Physician: Reason for Consultation: 41-year-old male with sudden onset of RIGHT-sided headache and RIGHT-sided paresthesias who underwent evaluation for CVA and received TPA per protocol. Requiring close neurological checks and hemodynamic monitoring. History of Present Illness Patient is a 41-year-old male presented to the emergency department with acute onset of RIGHT upper and lower extremity weakness/numbness. Patient reports that he and his family had traveled to the area from the [facility] for the annual [employer] football game early this morning. They enjoyed outdoor tailgating this afternoon for several hours. Patient admits to drinking coffee this morning as well as soda, one water, and approximately 8 beers. After the conclusion of the game, the patient made it back to his car just before developing an intense RIGHT sided neck spasm with pain that radiated across the top of his head. He initially felt as though he was having a "burner" to the neck so he laid in the car for approximately one half hours to wait for the pain to marlo. He does report that the intensity of the pain across his neck and head did increase. He has experienced headaches of similar quality in the past, but reports that he has never had one this intense. He became alarmed when, after receiving a text message, he was unable to reach for the phone with his RIGHT upper extremity. He reports that he did become very panicked and realized that he was unable to move his RIGHT lower extremity as well. Patient was subsequently brought to the emergency department where he underwent thorough neurological evaluation including CT of the head as well as CTA of the head and neck. Patient was administered TPA per neurologist recommendation. In addition, he received 1 g of IV Tylenol for complaints of ongoing headache. Patient had no significant coagulopathy. Cardiac enzymes are not impressive. Urine tox is negative. Ethyl alcohol was elevated at 104.0 mg/dL. On evaluation, the patient is awake, alert, and oriented. At this point, he mainly complains of pain to the RIGHT sided head. He does admit to being very anxious about the mobility of the RIGHT upper and lower extremities. He admits that his RIGHT and decreased sensation and hand has improved with range of motion, however. The patient denies any current blurry vision, double vision, slurred speech, facial droop, chest pain, palpitations, shortness of breath, nausea, vomiting, or abdominal pain. He denies any family history of atypical migrainous headaches. He denies any family history of CVA. Patient does have a family history significant for cardiac disease. Patient lives with family. He denies any heavy alcohol use. He denies any illicit substance use/abuse. Past Medical/Surgical History No significant Past Medical History Family History Patient reports no known family medical history. FHx: CAD Social History Smoking Status: Former Smoker Smokeless Tobacco Use: No Alcohol Use: occasionally Drug Use: none Marital Status: other Housing Status: lives with family Occupation Status: employed Allergies Coded Allergies: No Known Allergies (Unverified , 09/28/17) Home Medications Scheduled Cetirizine (Zyrtec), 10 MG PO QAM Esomeprazole Magnesium (Nexium), 20 MG PO DAILY Fluticasone Propionate (Nasal) (Flonase Allergy Relief), 1 SPRAY MARIA DAILY Current Inpatient Medications Current Inpatient Medications Medications (Trade) Dose Ordered Sig/Omayra Route Start Time Stop Time Status Last Admin Dose Admin Sodium Chloride 1,000 ml @ 50 mls/hr Q20H IV 09/28/17 18:28 10/28/17 18:27 09/28/17 19:08 50 MLS/HR Atorvastatin Calcium (Lipitor Tab) 40 mg QAM PO 09/29/17 09:00 10/29/17 08:59 UNV Miscellaneous Information (Pharmacist Discharge Med Rec Consult) 1 ea UD PRN N/A 09/28/17 20:00 10/28/17 19:59 Acetaminophen (Tylenol Tab) 650 mg Q4H PRN PO 09/28/17 20:00 10/28/17 19:59 Lorazepam (Ativan Inj) 0.5 mg Q4H PRN IV 09/28/17 20:00 10/28/17 19:59 UNV Pantoprazole Sodium (Protonix Tab) 40 mg DAILY PO 09/29/17 09:00 10/29/17 08:59 UNV Miscellaneous Information (Icu Protocol For Hyperglycemia) 1 ea PRN PRN N/A 09/28/17 20:00 09/30/17 19:59 Review of Systems A complete 10-point Review of Systems was discussed with the patient, with pertinent positives and negatives listed in the History of Present Illness. All remaining Review of Systems questions can be considered negative unless otherwise specified. Physical Exam Date Time Temp Pulse Resp B/P (MAP) Pulse Ox O2 Delivery O2 Flow Rate FiO2 09/28/17 20:47 36.9 88 17 136/80 95 Room Air 09/28/17 20:46 36.7 93 21 136/80 93 Room Air 09/28/17 20:31 92 18 123/86 93 Room Air 09/28/17 20:17 91 19 140/87 94 Room Air 09/28/17 20:03 98 21 134/83 93 Room Air 09/28/17 19:57 37.0 96 20 128/88 95 Room Air 09/28/17 19:46 98 21 128/88 93 Room Air 09/28/17 19:30 37.0 102 22 113/79 97 Room Air 09/28/17 19:21 115 09/28/17 19:16 155/95 09/28/17 19:15 102 19 96 09/28/17 19:10 96 16 94 09/28/17 19:07 Room Air 09/28/17 19:05 95 26 96 09/28/17 19:01 141/83 09/28/17 18:33 96 28 144/91 Room Air VITAL SIGNS - Vital signs and nursing notes were reviewed. GENERAL - 41-year-old male appearing his stated age who is in no acute distress. Communicates well with provider and answers questions appropriately. HEAD - Normocephalic, Atraumatic. No Jung's Sign or Raccoon's Eyes. No depressed skull fractures palpable. EYES - PERRL with EOMI bilaterally. Sclera anicteric. Palpebral conjunctiva pink and moist with no injection noted. EARS - No deformities of external structures noted on gross examination bilaterally. No pain elicited with palpation of the tragus bilaterally. External auditory canals without discharge or otorrhea. Tympanic membranes pearly montoya without retraction or bulging. NOSE - Midline and without cyanosis. No epistaxis or purulent drainage noted. Septum midline without deviation or septal hematoma noted. MOUTH/OROPHARYNX - Without perioral cyanosis. Buccal mucosa pink and moist and without leukoplakia. Tongue midline with equal elevation of palate bilaterally. No tonsillar hypertrophy, erythema, or exudates noted. Good dentition noted. NECK - Neck with FROM. Supple to palpation. No lymphadenopathy noted. No nuchal rigidity. LUNGS - Chest wall symmetric without accessory muscle use, intercostals retractions, or central cyanosis. Normal vesicular breath sounds CTA B/L. No wheezes, rales, or rhonchi appreciated. CARDIAC - RRR with S1/S2. No murmur, rubs, or gallops appreciated. ABDOMEN - Abdominal contour obese and without pulsations or visible masses. BS normoactive all four quadrants. No tenderness, palpable masses, hepatosplenomegaly, or ascites noted. EXTREMITIES - No pretibial edema present. +3/5 radial and dorsalis pedis pulses palpated throughout. +3/5 weakness to the RIGHT versus LEFT upper extremity. +1/ 5 weakness in the RIGHT versus LEFT lower extremity. NEUROLOGIC - Cranial nerves II through XII grossly intact. Patient with intact sharp/dull sensation throughout the RIGHT upper/lower extremities. Scattered areas of subjective decreased sensation with sharp/dull to the RIGHT upper and lower extremities. Withdraws from painful stimuli to all extremities. Patellar reflexes +2/4. Unable to perform rapid alternating movements of the RIGHT upper/ lower extremities. [] Negative Romberg and Pronator Drift. PSYCH - A&Ox3 and cooperates fully with examiner. Pt is very pleasant and interacts well with examiner. Laboratory Results Last 24 Hours Test 09/28/17 18:42 09/28/17 18:46 09/28/17 19:25 09/28/17 20:00 White Blood Count 8.71 K/uL Red Blood Count 5.16 M/uL Hemoglobin 15.2 g/dL Hematocrit 43.5 % Mean Corpuscular Volume 84.3 fL Mean Corpuscular Hemoglobin 29.5 pg Mean Corpuscular Hemoglobin Concent 34.9 g/dl Platelet Count 235 K/uL Mean Platelet Volume 8.8 fL Neutrophils (%) (Auto) 65.1 % Lymphocytes (%) (Auto) 24.9 % Monocytes (%) (Auto) 6.9 % Eosinophils (%) (Auto) 2.8 % Basophils (%) (Auto) 0.2 % Neutrophils # (Auto) 5.67 K/uL Lymphocytes # (Auto) 2.17 K/uL Monocytes # (Auto) 0.60 K/uL Eosinophils # (Auto) 0.24 K/uL Basophils # (Auto) 0.02 K/uL RDW Standard Deviation 38.8 fL RDW Coefficient of Variation 12.7 % Immature Granulocyte % (Auto) 0.1 % Immature Granulocyte # (Auto) 0.01 K/uL Prothrombin Time 10.4 SECONDS Prothromb Time International Ratio 1.0 Activated Partial Thromboplast Time 26.6 SECONDS Partial Thromboplastin Ratio 1.0 Sodium Level 141 mmol/L Potassium Level 4.2 mmol/L Chloride Level 109 mmol/L Carbon Dioxide Level 25 mmol/L Anion Gap 7.0 mmol/L 17.0 mmol/L Blood Urea Nitrogen 14 mg/dl Creatinine 1.05 mg/dl Est Creatinine Clear Calc Drug Dose 129.4 ml/min Estimated GFR () 101.0 Estimated GFR (Non- 87.1 BUN/Creatinine Ratio 13.1 Random Glucose 102 mg/dl Calcium Level 8.9 mg/dl Magnesium Level 2.4 mg/dl Total Creatine Kinase 282 U/L Creatine Kinase MB 2.9 ng/ml Creatine Kinase MB Ratio 1.0 Troponin I < 0.015 ng/ml Ethyl Alcohol mg/dL 104.0 mg/dl Bedside Hemoglobin 14.3 g/dl Bedside Hematocrit 42 % Bedside Sodium 142 mEq/L Bedside Potassium 4.2 mEq/L Bedside Chloride 106 mEq/L Bedside Total CO2 25 mEq/l Bedside Blood Urea Nitrogen 14 mg/dl Bedside Creatinine 1.1 mg/dl Bedside Glucose (other) 105 mg/dl Bedside Ionized Calcium (Fab) 1.13 mmol/l Urine Opiates Screen NEG Urine Methadone, Qualitative NEG Urine Barbiturates NEG Urine Phencyclidine (PCP) Level NEG Ur Amphetamine/Methamphetamine NEG MDMA (Ecstasy) Screen NEG Urine Benzodiazepines Screen NEG Urine Cocaine Metabolite NEG Urine Marijuana (THC) NEG Diagnostic Results Radiological imaging and reports were reviewed by myself. Radiologist's Interpretation as follows: CT SCAN OF THE BRAIN WITHOUT IV CONTRAST CLINICAL HISTORY: Strokelike symptoms. COMPARISON STUDY: No priors. TECHNIQUE: Unenhanced axial CT scan of the brain is performed from the vertex to the skull base. A dose lowering technique was utilized adhering to the principles of ALARA. CT DOSE: 614.27 mGy.cm FINDINGS: Brain parenchyma: The brain parenchyma is normal in appearance. There is no hemorrhage, mass effect, or evidence of acute territorial ischemia by CT criteria. Montoya-white matter is preserved. No extra-axial fluid collection is seen. Ventricles, sulci, cisterns: Normal in configuration. Intracranial vasculature: The visualized intracranial vasculature at the skull base is normal in appearance. Calvarium: Unremarkable. Sinuses and mastoids: Trace mucosal thickening is seen in the left maxillary antrum. The remaining visualized paranasal sinuses are clear. There is a small left mastoid effusion. The right mastoid air cells are well pneumatized. Orbits: The bony orbits are grossly intact. IMPRESSION: There is no hemorrhage, mass effect, or evidence of acute territorial ischemia by CT criteria. SINGLE VIEW CHEST CLINICAL HISTORY: Strokelike symptoms. FINDINGS: An AP, portable, upright chest radiograph is obtained. No prior studies are available for comparison at the time of dictation. The examination is degraded by portable technique and patient rotation. The heart is top normal for projection. The pulmonary vasculature is noncongested. No airspace consolidation or large pleural effusion is identified. No pneumothorax is seen. The bony thorax is grossly intact. Surgical anchors are noted in the humeral heads. IMPRESSION: No acute cardiopulmonary abnormality. CT ANGIOGRAM OF THE BRAIN; CT ANGIOGRAM OF THE NECK CLINICAL HISTORY: Strokelike symptoms. COMPARISON STUDY: Unenhanced CT of the brain performed the same day 09/28/2017. TECHNIQUE: Following the IV administration of 118 of Optiray 320, CT angiogram of the head and neck was performed from the aortic arch to the vertex. Images are reviewed in the axial, sagittal, and coronal planes. 3-D MIPS images are created and assessed. IV contrast was administered without complication. All measurements were calculated based on NASCET criteria. A dose lowering technique was utilized adhering to the principles of ALARA. CT DOSE: 673.41 mGy.cm FINDINGS: Brain parenchyma: The brain parenchyma is normal in appearance. There is no hemorrhage, mass effect, or evidence of acute territorial ischemia by CT criteria. There is no evidence of enhancing mass lesion on the angiogram phase images. The ventricles, sulci, and cisterns are normal in configuration. Montoya-white matter differentiation is preserved. No extra-axial fluid collection is seen. Thoracic aorta: Visualized portions of the thoracic aorta are normal in caliber. The aortic arch demonstrates bovine anatomy. Right carotid arterial system: The right common carotid artery is widely patent, as are the right internal and external carotid arteries. No dissection is seen. Left carotid arterial system: The left common carotid artery is widely patent, as are the left internal and external carotid arteries. No dissection is seen. Vertebral arteries: The vertebral arteries are patent bilaterally. The right vertebral artery is diminutive and terminates in the right cervical soft tissues. Subclavian arteries: Widely patent bilaterally. Intracranial vasculature: There are large bilateral posterior communicating arteries. The internal carotid arteries are patent at the skull base, as are the anterior and middle cerebral arteries bilaterally. The vertebrobasilar system is diminutive. The basilar artery is patent, as are the posterior cerebral arteries. The left vertebral artery is dominant and supplies the right PICA. The right vertebral artery terminates in the posterior cervical soft tissues. There is no aneurysm, high-grade stenosis, or focal vessel cut off seen throughout the intracranial circulation. Jugular veins: Patent bilaterally. Dural sinuses: Patent. Lung apices: Partially visualized upper lobe lung parenchyma appears clear. Soft tissues: The visualized pharyngeal soft tissues are normal in appearance noting angiographic phase technique. The oropharyngeal airway appears widely patent. The salivary and thyroid glands are normal in appearance. No cervical lymphadenopathy is seen. Skeletal structures: The calvarium appears intact. The cervical spine is within normal limits. Sinuses and mastoids: Trace mucosal thickening is seen in the maxillary antra. The remaining paranasal sinuses are clear. There is a small left mastoid effusion. The right mastoid air cells are well pneumatized. IMPRESSION: 1. There is no evidence of hemorrhage, mass effect, or acute territorial ischemia by CT criteria. 2. Unremarkable CT angiogram of the brain. 3. Unremarkable CT angiogram of the neck. 4. The right vertebral artery is diminutive and terminates in the right posterior cervical soft tissues. CT ANGIOGRAM OF THE BRAIN; CT ANGIOGRAM OF THE NECK CLINICAL HISTORY: Strokelike symptoms. COMPARISON STUDY: Unenhanced CT of the brain performed the same day 09/28/2017. TECHNIQUE: Following the IV administration of 118 of Optiray 320, CT angiogram of the head and neck was performed from the aortic arch to the vertex. Images are reviewed in the axial, sagittal, and coronal planes. 3-D MIPS images are created and assessed. IV contrast was administered without complication. All measurements were calculated based on NASCET criteria. A dose lowering technique was utilized adhering to the principles of ALARA. CT DOSE: 673.41 mGy.cm FINDINGS: Brain parenchyma: The brain parenchyma is normal in appearance. There is no hemorrhage, mass effect, or evidence of acute territorial ischemia by CT criteria. There is no evidence of enhancing mass lesion on the angiogram phase images. The ventricles, sulci, and cisterns are normal in configuration. Montoya-white matter differentiation is preserved. No extra-axial fluid collection is seen. Thoracic aorta: Visualized portions of the thoracic aorta are normal in caliber. The aortic arch demonstrates bovine anatomy. Right carotid arterial system: The right common carotid artery is widely patent, as are the right internal and external carotid arteries. No dissection is seen. Left carotid arterial system: The left common carotid artery is widely patent, as are the left internal and external carotid arteries. No dissection is seen. Vertebral arteries: The vertebral arteries are patent bilaterally. The right vertebral artery is diminutive and terminates in the right cervical soft tissues. Subclavian arteries: Widely patent bilaterally. Intracranial vasculature: There are large bilateral posterior communicating arteries. The internal carotid arteries are patent at the skull base, as are the anterior and middle cerebral arteries bilaterally. The vertebrobasilar system is diminutive. The basilar artery is patent, as are the posterior cerebral arteries. The left vertebral artery is dominant and supplies the right PICA. The right vertebral artery terminates in the posterior cervical soft tissues. There is no aneurysm, high-grade stenosis, or focal vessel cut off seen throughout the intracranial circulation. Jugular veins: Patent bilaterally. Dural sinuses: Patent. Lung apices: Partially visualized upper lobe lung parenchyma appears clear. Soft tissues: The visualized pharyngeal soft tissues are normal in appearance noting angiographic phase technique. The oropharyngeal airway appears widely patent. The salivary and thyroid glands are normal in appearance. No cervical lymphadenopathy is seen. Skeletal structures: The calvarium appears intact. The cervical spine is within normal limits. Sinuses and mastoids: Trace mucosal thickening is seen in the maxillary antra. The remaining paranasal sinuses are clear. There is a small left mastoid effusion. The right mastoid air cells are well pneumatized. IMPRESSION: 1. There is no evidence of hemorrhage, mass effect, or acute territorial ischemia by CT criteria. 2. Unremarkable CT angiogram of the brain. 3. Unremarkable CT angiogram of the neck. 4. The right vertebral artery is diminutive and terminates in the right posterior cervical soft tissues. MRI OF THE BRAIN WITHOUT IV CONTRAST CLINICAL HISTORY: Right-sided weakness. COMPARISON STUDY: CT and CT angiogram of the brain dated 09/28/2017. TECHNIQUE: MRI of the brain was performed utilizing various T1 and T2-weighted sequences in the axial, sagittal, and coronal planes. IV contrast was not administered for this examination. The examination is modestly degraded by motion artifact. FINDINGS: Brain parenchyma: The brain parenchyma is normal in appearance. There is no hemorrhage or mass effect. There is no restricted diffusion to suggest acute ischemia. Montoya-white matter differentiation is preserved. No extra-axial fluid collection is seen. The cerebellar tonsils are normal in configuration. Ventricles, sulci, and cisterns: Normal in configuration. Pituitary and sella: Unremarkable. Intracranial vasculature: Normal flow voids are maintained at the skull base. Orbits: The bony orbits are grossly intact. Orbital contents are normal in appearance. Sinuses and mastoids: There is a small left mastoid effusion. The right mastoid air cells are clear. Mild mucosal thickening is seen within the maxillary antra. The remaining paranasal sinuses are clear. Calvarium: Unremarkable. Cervical cord: Partially visualized cervical spinal cord is normal in morphology and signal intensity. IMPRESSION: No acute intracranial abnormality. Assessment & Plan (1) CVA (cerebral vascular accident) (2) Right sided weakness Reason Critically Ill: 41-year-old male with sudden onset of RIGHT-sided headache and RIGHT-sided paresthesias who underwent evaluation for CVA and received TPA per protocol. Requiring close neurological checks and hemodynamic monitoring. Neuro - * [facility] ICU: NEGATIVE * ??CVA w/ RIGHT sided deficits: * CT w/o and CTA Head/Neck unremarkable. * Agree with MRI early. * Received TPA in the 3hr window. * Will monitor for any bleeding. * Improving strength upper/lower extremities. * Neuro checks per protocol. * Repeat imaging as needed. * Will continue w/ TPA protocols as established. * Presentation is not necessarily typical of CVA pattern, however, given the time constraints and profound exam findings, agree with initial aggressive treatment of ??underlying thromboembolic process. * Will await MRI for further investigation. --> MRI shows no acute processes. At this point, will treat headache as a diagnostic and therapeutic approach to ? ?atypical migraine?? * Headache: * Acute onset of RIGHT sided neck/head pain. * Has experienced similar character of headaches in the past w/ associated photophobia alone. Has never had peripheral s/s w/ HAs in the past. * CTA shows no concern for SAH which is encouraging for the acuity of onset of s/s. * MRI w/o acute finding. * Exam w/ scattered atypical neurologic findings. * Will treat with IVF to bolster intravascular volume in the setting of ?? migraine w/ recent EtOH use and sun exposure. * Received IV acetaminophen in the ED. * Will avoid narcotics in an effort to avoid masking any worsening s/s of CVA s /p TPA administration. * Consider Solu-Medrol/Reglan w/ IVF for treatment of headache. * Appreciate Neurology guidance for further management. * EtOH Use: * Reports "occasional" use. * Will monitor for any s/s of withdraw. * Unconcerned at this point. Cardiac - * No h/o Cardiac Dz. * Family Hx TN - Mother * Agree with AM Echo in the sake of completeness for CVA evaluation. * Monitor on telemetry. * Close BP monitoring in the CVA pt. Respiratory - * No h/o pulmonary disease. * Will monitor pulse oximetry closely. GI - * DIET: AHA * Prophylaxis: Protonix RENAL/LYTES - * No significant electrolyte derangements. * Will monitor closely. * Plan to added fluid bolus to help w/ volume losses 2/2 EtOH and sun exposure today. * IVF: Normosol@80mL/hr - * Strict I&Os ENDO - * No h/o DM or Thyroid Dz. * BSGs w/ ISS/gtt per protocol. HEME - * Stable H&H * Status Post TPA administration. * Monitor for any s/s of bleeding. ID - * No c/o Infectious processes at this point. * Monitor fever curve. LINES/IV ACCESS - * PIVs x2 DVT PROPHYLAXIS - * Avoid chemoprophylaxis s/p TPA administration. I have personally spent 45 minutes of critical care time in the direct management of this patient. This is a life/limb threatening event. This includes time spent evaluating patient, direct bedside care, chart review, placing orders, interpretation of diagnostic studies, discussion with consultants, patient, and family members, as well as other required patient management activities. This time is exclusive of all separately billable procedures, and teaching time and separate from and in addition to any other critical care service time. Thank you for this consultation allow us to be part of this patient's care. Please refer to my attending physician's documentation for any further recommendations. Attending addendum, Agree with assessment and plan of my colleague Josep Riley, the patient was admitted with right-sided CVA and received TPA, his imaging including head CT and head MRI in addition to the MRA did not reveal any evidence of it however due to the symptoms the patient did receive TPA, admitted to the ICU for further monitoring, although there was some improvement overnight today in the morning the patient started having similar weakness mainly in the upper extremities and lower extremity, numbness and tingling also in the hands. Denies any pain in the arm on the leg but he does have pain mainly in the neck area extending to the base of the skull. Patient was evaluated by Dr. Mccabe from neurology and appreciate his input. Patient monitored in the ICU for further management from CVA standpoint. Critical care time spent with the patient was 60 minutes. Further details in the above note. Problem Qualifiers (1) CVA (cerebral vascular accident): CVA mechanism: unspecified Qualified Codes: I63.9 - Cerebral infarction, unspecified
--- NOTE | 2017-09-28 22:09 | DIAGNOSTIC IMAGING REPORT ---
MRI OF THE BRAIN WITHOUT IV CONTRAST CLINICAL HISTORY: Right-sided weakness. COMPARISON STUDY: CT and CT angiogram of the brain dated 09/28/2017. TECHNIQUE: MRI of the brain was performed utilizing various T1 and T2-weighted sequences in the axial, sagittal, and coronal planes. IV contrast was not administered for this examination. The examination is modestly degraded by motion artifact. FINDINGS: Brain parenchyma: The brain parenchyma is normal in appearance. There is no hemorrhage or mass effect. There is no restricted diffusion to suggest acute ischemia. Montoya-white matter differentiation is preserved. No extra-axial fluid collection is seen. The cerebellar tonsils are normal in configuration. Ventricles, sulci, and cisterns: Normal in configuration. Pituitary and sella: Unremarkable. Intracranial vasculature: Normal flow voids are maintained at the skull base. Orbits: The bony orbits are grossly intact. Orbital contents are normal in appearance. Sinuses and mastoids: There is a small left mastoid effusion. The right mastoid air cells are clear. Mild mucosal thickening is seen within the maxillary antra. The remaining paranasal sinuses are clear. Calvarium: Unremarkable. Cervical cord: Partially visualized cervical spinal cord is normal in morphology and signal intensity. IMPRESSION: No acute intracranial abnormality. Electronically signed by: Luis Varela M.D. 09/28/2017 10:07 PM Dictated Date/Time: 09/28/2017 10:04 PM
[2017-09-28] MEDS ORDERED: SODIUM CHLORIDE 0.9% 500ML 500 ML IV SCH (22:15)
[2017-09-28] MEDS ORDERED: NORMOSOL R 1,000 ML IV SCH (22:30)
[2017-09-28] MEDS ORDERED: SODIUM CHLORIDE 0.9% IV SCH (23:15)
[2017-09-29] VITALS (23 sets, daily range): BP systolic 104–146; BP diastolic 54–92; PULSE 71–90; TEMP 36.8–36.9; O2SAT 93–98
[2017-09-29] MEDS ORDERED: METHYLPREDNISOLONE IV 40 MG in SYRINGE 0 ML IV ONE (00:30)
[2017-09-29] MEDS ORDERED: METOCLOPRAMIDE HCL INJ 5 MG/ML 2 ML VIAL IV. ONE (00:30)
[2017-09-29] MEDS ORDERED: NORMOSOL R IV SCH (00:30)
--- NOTE | 2017-09-29 07:04 | DIAGNOSTIC IMAGING REPORT ---
CHEST ONE VIEW PORTABLE CLINICAL HISTORY: sob dyspnea COMPARISON STUDY: 09/28/2017 FINDINGS: The bones soft tissues and hemidiaphragms are normal. The cardiomediastinal silhouette is normal. The lungs are clear. The pulmonary vasculature is normal. IMPRESSION: Negative chest. The above report was generated using voice recognition software. It may contain grammatical, syntax or spelling errors. Electronically signed by: Slava España M.D. 09/29/2017 7:03 AM Dictated Date/Time: 09/29/2017 7:02 AM
[2017-09-29] MEDS ORDERED: PANTOprazole SOD 40 MG TAB PO SCH (09:00)
[2017-09-29] MEDS ORDERED: ATORVASTATIN 40 MG TAB PO SCH (09:00)
[2017-09-29] MEDS ORDERED: LPT40 PO (10:10)
--- NOTE | 2017-09-29 10:12 | Critical Care Progress Note ---
Critical Care Progress Note Date of Service Sep 29, 2017. Attending Dr. 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 No chest pain was reported no shortness of breath and no difficulty swallowing. No evidence of bleeding after he was monitored overnight for TPA infusion. Objective Physical exam as above, S1-S2 regular rate and rhythm, lungs are clear, vital signs are stable, his blood pressure has been maintained at 146/88, O2 saturation 96% and respiratory rate is 22 with a heart rate of 87 normal sinus rhythm. No bruit in the neck area. Neck examination revealed limited movement torso right and painful mainly in the sternomastoid and trapezoid muscles. The patient does have weakness lifting up his shoulder as well as difficulty also mobilizing his hand. He is only 2/5 on the right upper extremity and similar findings on the lower extremity minimal numbness and altered sensation in the digits and upper extremity on the right. Reflexes are preserved. His imaging has been reviewed including MRI, CAT scan of the head, chest x-ray 2 all appeared normal. Assessment & Plan 1. Focal neurologic weakness, upper versus lower motor neuron. Appreciate Dr. Mccabe and Dr. Pearl input. The patient received TPA for treatment of acute CVA, or imaging has not been reported to have CVA evidence. However due to the complexity of his case, the patient was planned to be transferred to [facility] for further evaluation. 2. Hypertension, borderline, will keep the blood pressure at 146/88. 3. 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 He does not have significant dust exposure. 4. The patient is social drinker and his alcohol level on arrival was 104. No illicit drugs were detected. Patient denies the use of it anyway. 5. We will continue to monitor his neurologic status until his departure. Case discussed with neurology and Dr. Pearl. Appreciate their input. Discussed with the staff on rounds. Critical care time spent with the patient was 45 minutes. Data Medications: Current Inpatient Medications Medications (Trade) Dose Ordered Sig/Omayra Route Start Time Stop Time Status Last Admin Dose Admin Atorvastatin Calcium (Lipitor Tab) 40 mg QAM PO 09/29/17 09:00 10/29/17 08:59 09/29/17 08:51 40 MG Miscellaneous Information (Pharmacist Discharge Med Rec Consult) 1 ea UD PRN N/A 09/28/17 20:00 10/28/17 19:59 Acetaminophen (Tylenol Tab) 650 mg Q4H PRN PO 09/28/17 20:00 10/28/17 19:59 Lorazepam (Ativan Inj) 0.5 mg Q4H PRN IV 09/28/17 20:00 10/28/17 19:59 Pantoprazole Sodium (Protonix Tab) 40 mg DAILY PO 09/29/17 09:00 10/29/17 08:59 09/29/17 08:51 40 MG Miscellaneous Information ([facility] Protocol For Hyperglycemia) 1 ea PRN PRN N/A 09/28/17 20:00 09/30/17 19:59 Parenteral Electrolyte Solution 1,000 ml @ 80 mls/hr [id number] IV 09/28/17 22:30 10/28/17 22:29 09/29/17 00:44 80 MLS/HR Vital Signs: Date Time Temp Pulse Resp B/P (MAP) Pulse Ox O2 Delivery O2 Flow Rate FiO2 09/29/17 09:01 81 21 116/92 (100) 98 09/29/17 09:01 81 21 116/92 (100) 98 09/29/17 08:01 80 21 125/79 (94) 98 09/29/17 08:01 80 21 98 09/29/17 07:01 36.8 76 24 116/67 (83) 98 09/29/17 07:01 76 24 116/67 (83) 98 09/29/17 06:31 74 20 120/78 (92) 97 09/29/17 06:31 74 20 120/78 (92) 97 09/29/17 06:02 71 15 97 09/29/17 06:02 71 15 97 09/29/17 06:02 36.9 72 13 115/74 (88) 96 Room Air 09/29/17 05:02 36.9 74 20 118/73 (88) 98 Room Air 09/29/17 04:15 96 Room Air 09/29/17 04:02 36.9 71 17 120/69 (86) 96 Room Air 09/29/17 03:32 36.9 79 17 126/81 (96) 95 Room Air 09/29/17 03:32 36.9 79 17 126/81 (96) 95 Room Air 09/29/17 03:02 36.9 75 18 110/56 (74) 93 Room Air 09/29/17 03:02 36.9 75 18 110/56 (74) 93 Room Air 09/29/17 02:32 36.9 90 16 111/58 (75) 98 Room Air 09/29/17 02:32 36.9 90 16 111/58 (75) 98 Room Air 09/29/17 02:31 36.9 90 16 111/58 (75) 98 Room Air 09/29/17 02:02 36.9 78 17 104/54 (71) 98 Room Air 09/29/17 02:02 36.9 78 17 104/54 (71) 98 Room Air 09/29/17 01:32 36.9 77 18 115/69 (84) 96 Room Air 09/29/17 01:32 36.9 77 18 115/69 (84) 96 Room Air 09/29/17 01:02 36.9 88 18 123/65 (84) 97 Room Air 09/29/17 01:02 36.9 88 18 123/65 (84) 97 Room Air 09/29/17 00:32 36.9 84 19 111/66 (81) 97 Room Air 09/29/17 00:32 36.9 84 19 111/66 (81) 97 Room Air 09/29/17 00:22 96 Room Air 09/29/17 00:02 36.9 81 18 117/62 (80) 97 Room Air 09/29/17 00:02 36.9 81 18 117/62 (80) 97 Room Air 09/28/17 23:32 36.9 82 16 123/72 (89) 98 Room Air 09/28/17 23:32 36.9 86 17 123/72 (89) 97 Room Air 09/28/17 23:02 36.9 89 20 135/72 (93) 97 Room Air 09/28/17 23:02 36.9 84 16 135/72 (93) 98 Room Air 09/28/17 22:32 36.9 88 16 121/69 (86) 96 Room Air 09/28/17 22:32 36.9 88 16 121/69 (86) 96 Room Air 09/28/17 22:31 88 16 121/69 (86) 96 09/28/17 22:11 84 13 119/79 (92) 96 09/28/17 22:04 36.9 84 18 124/79 (94) 97 Room Air 09/28/17 22:00 124/79 (94) 09/28/17 21:32 90 16 95/58 (70) 95 Room Air 09/28/17 21:16 90 15 136/81 96 Room Air 09/28/17 21:01 36.9 88 16 127/79 96 09/28/17 20:47 36.9 88 17 136/80 95 Room Air 09/28/17 20:46 36.7 93 21 136/80 93 Room Air 09/28/17 20:31 36.9 92 18 123/86 93 Room Air 09/28/17 20:17 36.9 91 19 140/87 94 Room Air 09/28/17 20:03 36.9 98 21 134/83 93 Room Air 09/28/17 19:57 37.0 96 20 128/88 95 Room Air 09/28/17 19:46 37.0 98 21 128/88 93 Room Air 09/28/17 19:30 37.0 102 22 113/79 97 Room Air 09/28/17 19:21 115 09/28/17 19:16 155/95 09/28/17 19:15 102 19 96 09/28/17 19:10 96 16 94 09/28/17 19:07 Room Air 09/28/17 19:05 95 26 96 09/28/17 19:01 141/83 09/28/17 18:33 96 28 144/91 Room Air Laboratory Results: Last 24 Hours Test 09/28/17 18:42 09/28/17 18:46 09/28/17 19:01 09/28/17 19:25 White Blood Count 8.71 K/uL Red Blood Count 5.16 M/uL Hemoglobin 15.2 g/dL Hematocrit 43.5 % Mean Corpuscular Volume 84.3 fL Mean Corpuscular Hemoglobin 29.5 pg Mean Corpuscular Hemoglobin Concent 34.9 g/dl Platelet Count 235 K/uL Mean Platelet Volume 8.8 fL Neutrophils (%) (Auto) 65.1 % Lymphocytes (%) (Auto) 24.9 % Monocytes (%) (Auto) 6.9 % Eosinophils (%) (Auto) 2.8 % Basophils (%) (Auto) 0.2 % Neutrophils # (Auto) 5.67 K/uL Lymphocytes # (Auto) 2.17 K/uL Monocytes # (Auto) 0.60 K/uL Eosinophils # (Auto) 0.24 K/uL Basophils # (Auto) 0.02 K/uL RDW Standard Deviation 38.8 fL RDW Coefficient of Variation 12.7 % Immature Granulocyte % (Auto) 0.1 % Immature Granulocyte # (Auto) 0.01 K/uL Prothrombin Time 10.4 SECONDS Prothromb Time International Ratio 1.0 Activated Partial Thromboplast Time 26.6 SECONDS Partial Thromboplastin Ratio 1.0 Sodium Level 141 mmol/L Potassium Level 4.2 mmol/L Chloride Level 109 mmol/L Carbon Dioxide Level 25 mmol/L Anion Gap 7.0 mmol/L 17.0 mmol/L Blood Urea Nitrogen 14 mg/dl Creatinine 1.05 mg/dl Est Creatinine Clear Calc Drug Dose 129.4 ml/min Estimated GFR () 101.0 Estimated GFR (Non- 87.1 BUN/Creatinine Ratio 13.1 Random Glucose 102 mg/dl Calcium Level 8.9 mg/dl Magnesium Level 2.4 mg/dl Total Creatine Kinase 282 U/L Creatine Kinase MB 2.9 ng/ml Creatine Kinase MB Ratio 1.0 Troponin I < 0.015 ng/ml Ethyl Alcohol mg/dL 104.0 mg/dl Bedside Hemoglobin 14.3 g/dl Bedside Hematocrit 42 % Bedside Sodium 142 mEq/L Bedside Potassium 4.2 mEq/L Bedside Chloride 106 mEq/L Bedside Total CO2 25 mEq/l Bedside Blood Urea Nitrogen 14 mg/dl Bedside Creatinine 1.1 mg/dl Bedside Glucose (other) 105 mg/dl Bedside Ionized Calcium (Fab) 1.13 mmol/l Bedside Glucose 102 mg/dl Urine Opiates Screen NEG Urine Methadone, Qualitative NEG Urine Barbiturates NEG Urine Phencyclidine (PCP) Level NEG Ur Amphetamine/Methamphetamine NEG MDMA (Ecstasy) Screen NEG Urine Benzodiazepines Screen NEG Urine Cocaine Metabolite NEG Urine Marijuana (THC) NEG Test 09/28/17 20:00 09/29/17 02:00 Creatine Kinase MB Ratio
[2017-09-29] MEDS ORDERED: ASPIRIN 325 MG ECTAB PO SCH (10:15)
[2017-09-29] MEDS ORDERED: ASPIRIN 324 MG CHEW ONE (10:18)
--- NOTE | 2017-09-29 10:18 | Discharge Instructions ---
Discharge Instructions Date of Service Sep 29, 2017. Admission Reason for Admission: Cva,Right Sided Weakness Discharge Discharge Diagnosis / Problem: right sided hemipelegia Discharge Goals Goal(s): Diagnostic testing, Therapeutic intervention Activity Recommendations Activity Limitations: as noted below Lifting Limitations: gradually increase as tolerated . Instructions / Follow-Up Instructions / Follow-Up Risk Factors for Stroke: You can reduce your chances of stroke by working with your medical provider to adopt a healthy lifestyle. Some specific ways to lower your chance of stroke are: * If you are a smoker, now is the time to stop smoking cigarettes * If you are diabetic, improve the control of your blood sugars * Avoid excessive amounts of alcohol * Control high blood pressure * Lose weight if you are overweight * Be sure to lead an active lifestyle * Eat a healthy diet low in salt, cholesterol and fat You should know about other risk factors for stroke that you are unable to control. These include: * Age 55 years or older * Male gender * Certain racial groups: , or / * Family History of Stroke, Mini stroke or Heart Attack * Sickle Cell Disease Follow Up: It is important for you to keep your follow up appointments with your medical provider. Current Hospital Diet Patient's current hospital diet: AHA Diet (Heart Healthy) Discharge Diet Recommended Diet: N/A Pending Studies Studies pending at discharge: no Laboratory Results Hemoglobin A1c Test 09/28/17 18:42 Range/Units Medical Emergencies . Who to Call and When: Medical Emergencies: Call 911 immediately if you experience any of the following warning signs and symptoms of Stroke: * Sudden numbness or weakness of the face, arm or leg, especially on one side of the body * Sudden confusion, trouble speaking or understanding * Sudden trouble seeing in one or both eyes * Sudden trouble walking, dizziness, loss of balance or coordination * Sudden severe headache with no cause Do not delay calling 911 if you experience any warning signs or symptoms of a stroke. Delay in seeking medical attention may affect what treatments can be given to you. . Non-Emergent Contact Non-Emergency issues call your: Primary Care Provider, Neurologist Call Non-Emergent contact if: temperature is above 101, your pain is unusual for you . . "Provider Documentation" section prepared by Aries Pearl. . Stroke Core Measures Reason no t-PA for Stroke: Treatment provided - N/A Reason no antithrom by day 2: Treatment provided - N/A Reason no antithrom at D/C: Treatment provided - N/A Reason no statin at D/C: Treatment provided - N/A Reason no anticoag w/a fib: Treatment provided - N/A
[2017-09-29] MEDS ORDERED: ASPIRIN 324 MG CHEW PO ONE (10:30)
--- NOTE | 2017-09-29 11:25 | Neurology Consultation ---
Neurology Consultation Date of Consultation: Sep 29, 2017. Attending Physician: Aries Pearl M.D. Primary Care Physician: No Doctor, Assigned Reason for Consultation: Stroke History of Present Illness Source: patient, hospital records The patient is a 41-year-old male with a chief complaint right-sided weakness that began acutely yesterday afternoon while at a football game. He reports that he had left the stadium and began to experience acute right-sided neck pain that radiated into the occipital region. He does not typically get headaches or neck pain although he wondered if he could be having a migraine. He laid down in his car for a while to see if the symptoms would resolve. When attempting to get up out of the car he became acutely aware that his right arm and leg were considerably weak. He was evaluated in the emergency department for these persistent neurological symptoms. A tele Stroke consultation with [facility] was obtained and tPA was administered. The patient was subsequently admitted to the intensive care unit for further evaluation and management.There was some modest improvement in his right-sided weakness overnight. However, this morning, he complains that his right-sided weakness has returned. He continues to complain of a low-grade occipital headache with associated right-sided neck discomfort. He denies any pain radiating into the right shoulder or arm. He denies any vision disturbance or change in speech. A CT of the head completed in the emergency department was unremarkable. No evidence of hemorrhage or obvious acute process. A CT angiogram of the head and neck was also completed. The right vertebral artery is diminutive and reportedly terminates in the soft tissue of the neck. No obvious abnormalities within the anterior circulation. I reviewed the images as well as the radiologist's interpretation of these tests and appreciated the diminutive right vertebral artery. A follow-up brain MRI was completed as well. I reviewed the images as well as the radiologist's interpretation of this test.Per my review, there appears to be a small, wedge shaped area of restricted diffusion affecting the right medulla/upper cervical spinal cord, just below the pyramidal decussation. This bright signal is appreciated on the lowest two sections on diffusion-weighted imaging. The ADC map in this area of the brain is inconclusive. There is an absent flow void for the right vertebral artery. Past Medical/Surgical History Medical Problems: (1) CVA (cerebral vascular accident) Status: Acute (2) Right sided weakness Status: Acute Family History Patient denies a family history of migraine Social History Smokeless Tobacco Use: No Alcohol Use: socially Drug Use: none Marital Status: Housing Status: lives with family Occupation Status: employed Allergies Coded Allergies: No Known Allergies (Unverified , 09/28/17) Current Inpatient Medications Current Inpatient Medications Medications (Trade) Dose Ordered Sig/Omayra Route Start Time Stop Time Status Last Admin Dose Admin Atorvastatin Calcium (Lipitor Tab) 40 mg QAM PO 09/29/17 09:00 10/29/17 08:59 09/29/17 08:51 40 MG Miscellaneous Information (Pharmacist Discharge Med Rec Consult) 1 ea UD PRN N/A 09/28/17 20:00 10/28/17 19:59 Acetaminophen (Tylenol Tab) 650 mg Q4H PRN PO 09/28/17 20:00 10/28/17 19:59 Lorazepam (Ativan Inj) 0.5 mg Q4H PRN IV 09/28/17 20:00 10/28/17 19:59 Pantoprazole Sodium (Protonix Tab) 40 mg DAILY PO 09/29/17 09:00 10/29/17 08:59 09/29/17 08:51 40 MG Miscellaneous Information (Icu Protocol For Hyperglycemia) 1 ea PRN PRN N/A 09/28/17 20:00 09/30/17 19:59 Parenteral Electrolyte Solution 1,000 ml @ 80 mls/hr [id number] IV 09/28/17 22:30 10/28/17 22:29 09/29/17 00:44 80 MLS/HR Review of Systems Constitutional: No fever chills Eyes: No vision loss or diplopia ENT: No hearing loss or vertigo Cardiovascular: No chest pain or palpitations Respiratory: No cough or shortness of breath Neurological: As per history of present illness Musculoskeletal: No myalgia or arthralgia Skin: No rash or skin lesions Hematologic: No abnormal bruising or bleeding A full 10 point review of systems was obtained from this patient with pertinent positives and negatives described in the history of present illness and otherwise listed above. All remaining systems were reviewed and are negative. Physical Exam Vital Signs (Past 24 Hrs): Date Time Temp Pulse Resp B/P (MAP) Pulse Ox O2 Delivery O2 Flow Rate FiO2 09/29/17 10:01 84 17 146/88 (107) 96 09/29/17 10:01 84 17 146/88 (107) 96 09/29/17 09:01 81 21 116/92 (100) 98 09/29/17 09:01 81 21 116/92 (100) 98 09/29/17 08:01 80 21 125/79 (94) 98 09/29/17 08:01 80 21 98 09/29/17 08:00 Room Air 09/29/17 07:01 36.8 76 24 116/67 (83) 98 09/29/17 07:01 76 24 116/67 (83) 98 09/29/17 06:31 74 20 120/78 (92) 97 09/29/17 06:31 74 20 120/78 (92) 97 09/29/17 06:02 71 15 97 09/29/17 06:02 71 15 97 09/29/17 06:02 36.9 72 13 115/74 (88) 96 Room Air 09/29/17 05:02 36.9 74 20 118/73 (88) 98 Room Air 09/29/17 04:15 96 Room Air 09/29/17 04:02 36.9 71 17 120/69 (86) 96 Room Air 09/29/17 03:32 36.9 79 17 126/81 (96) 95 Room Air 09/29/17 03:32 36.9 79 17 126/81 (96) 95 Room Air 09/29/17 03:02 36.9 75 18 110/56 (74) 93 Room Air 09/29/17 03:02 36.9 75 18 110/56 (74) 93 Room Air 09/29/17 02:32 36.9 90 16 111/58 (75) 98 Room Air 09/29/17 02:32 36.9 90 16 111/58 (75) 98 Room Air 09/29/17 02:31 36.9 90 16 111/58 (75) 98 Room Air 09/29/17 02:02 36.9 78 17 104/54 (71) 98 Room Air 09/29/17 02:02 36.9 78 17 104/54 (71) 98 Room Air 09/29/17 01:32 36.9 77 18 115/69 (84) 96 Room Air 09/29/17 01:32 36.9 77 18 115/69 (84) 96 Room Air 09/29/17 01:02 36.9 88 18 123/65 (84) 97 Room Air 09/29/17 01:02 36.9 88 18 123/65 (84) 97 Room Air 09/29/17 00:32 36.9 84 19 111/66 (81) 97 Room Air 09/29/17 00:32 36.9 84 19 111/66 (81) 97 Room Air 09/29/17 00:22 96 Room Air 09/29/17 00:02 36.9 81 18 117/62 (80) 97 Room Air 09/29/17 00:02 36.9 81 18 117/62 (80) 97 Room Air 09/28/17 23:32 36.9 82 16 123/72 (89) 98 Room Air 09/28/17 23:32 36.9 86 17 123/72 (89) 97 Room Air 09/28/17 23:02 36.9 89 20 135/72 (93) 97 Room Air 09/28/17 23:02 36.9 84 16 135/72 (93) 98 Room Air 09/28/17 22:32 36.9 88 16 121/69 (86) 96 Room Air 09/28/17 22:32 36.9 88 16 121/69 (86) 96 Room Air 09/28/17 22:31 88 16 121/69 (86) 96 09/28/17 22:11 84 13 119/79 (92) 96 09/28/17 22:04 36.9 84 18 124/79 (94) 97 Room Air 09/28/17 22:00 124/79 (94) 09/28/17 21:32 90 16 95/58 (70) 95 Room Air 09/28/17 21:16 90 15 136/81 96 Room Air 09/28/17 21:01 36.9 88 16 127/79 96 09/28/17 20:47 36.9 88 17 136/80 95 Room Air 09/28/17 20:46 36.7 93 21 136/80 93 Room Air 09/28/17 20:31 36.9 92 18 123/86 93 Room Air 09/28/17 20:17 36.9 91 19 140/87 94 Room Air 09/28/17 20:03 36.9 98 21 134/83 93 Room Air 09/28/17 19:57 37.0 96 20 128/88 95 Room Air 09/28/17 19:46 37.0 98 21 128/88 93 Room Air 09/28/17 19:30 37.0 102 22 113/79 97 Room Air 09/28/17 19:21 115 09/28/17 19:16 155/95 09/28/17 19:15 102 19 96 09/28/17 19:10 96 16 94 09/28/17 19:07 Room Air 09/28/17 19:05 95 26 96 09/28/17 19:01 141/83 09/28/17 18:33 96 28 144/91 Room Air The patient is a well-developed, well-nourished, adult male. He is mildly distressed as he continues to have weakness of his right arm and leg. He is alert and fully oriented. Recent and remote memory intact. Attention and concentration normal. Patient exhibits a normal spontaneous speech pattern as well as an age-appropriate fund of knowledge. Visual gresham full to confrontation. Visual acuity normal. Pupils equal round reactive to light and accommodation. Eye movements normal. There is no nystagmus. Facial sensation intact bilaterally. There is no facial droop or weakness. Hearing intact to finger rub bilaterally. Palate elevates to midline. Shoulder shrug strength intact bilaterally. Tongue protrudes to midline. There is a mild sensory deficit to light touch affecting the right arm and leg. Vibratory sensation for the limbs is intact. Deep tendon reflexes are brisk for the right arm and leg. Right plantar response equivocal. Left plantar response downgoing. There is dysmetria with finger to nose and heel to maurice on the right. No dysmetria with [id number] or heel to maurice on the left. Ophthalmoscopic examination reveals normal-appearing optic discs and posterior segments. No papilledema or hemorrhages. Carotid pulses normal bilaterally, no bruits to auscultation. Gait station cannot be tested. Patient exhibits weakness of the right arm and leg, 4/5. Strength for the left arm and leg 5/5. He has impaired facility of the right hand. Grasp is impaired as well. Movement initiation for the right arm and leg are impaired. He orbits on the right with arm roll. Muscle tone normal. No atrophy. No abnormal movements observed. Laboratory Results Past 24 Hours: 09/28/17 18:42 Red Blood Count 5.16, Mean Corpuscular Volume 84.3, Mean Corpuscular Hemoglobin 29.5, Mean Corpuscular Hemoglobin Concent 34.9, Mean Platelet Volume 8.8, Neutrophils (%) (Auto) 65.1, Lymphocytes (%) (Auto) 24.9, Monocytes (%) (Auto) 6.9, Eosinophils (%) (Auto) 2.8, Basophils (%) (Auto) 0.2, Neutrophils # (Auto) 5.67, Lymphocytes # (Auto) 2.17, Monocytes # (Auto) 0.60, Eosinophils # (Auto) 0.24, Basophils # (Auto) 0.02 09/28/17 18:42 Test 09/28/17 18:42 09/28/17 18:46 09/28/17 19:01 09/28/17 19:25 White Blood Count 8.71 K/uL (4.8-10.8) Red Blood Count 5.16 M/uL (4.7-6.1) Hemoglobin 15.2 g/dL (14.0-18.0) Hematocrit 43.5 % (42-52) Mean Corpuscular Volume 84.3 fL (80-100) Mean Corpuscular Hemoglobin 29.5 pg (25-34) Mean Corpuscular Hemoglobin Concent 34.9 g/dl (32-36) Platelet Count 235 K/uL (130-400) Mean Platelet Volume 8.8 fL (7.4-10.4) Neutrophils (%) (Auto) 65.1 % Lymphocytes (%) (Auto) 24.9 % Monocytes (%) (Auto) 6.9 % Eosinophils (%) (Auto) 2.8 % Basophils (%) (Auto) 0.2 % Neutrophils # (Auto) 5.67 K/uL (1.4-6.5) Lymphocytes # (Auto) 2.17 K/uL (1.2-3.4) Monocytes # (Auto) 0.60 K/uL (0.11-0.59) Eosinophils # (Auto) 0.24 K/uL (0-0.5) Basophils # (Auto) 0.02 K/uL (0-0.2) RDW Standard Deviation 38.8 fL (36.4-46.3) RDW Coefficient of Variation 12.7 % (11.5-14.5) Immature Granulocyte % (Auto) 0.1 % Immature Granulocyte # (Auto) 0.01 K/uL (0.00-0.02) Prothrombin Time 10.4 SECONDS (9.0-12.0) Prothromb Time International Ratio 1.0 (0.9-1.1) Activated Partial Thromboplast Time 26.6 SECONDS (21.0-31.0) Partial Thromboplastin Ratio 1.0 Est Creatinine Clear Calc Drug Dose 129.4 ml/min Estimated GFR () 101.0 Estimated GFR (Non- 87.1 BUN/Creatinine Ratio 13.1 (10-20) Calcium Level 8.9 mg/dl (8.5-10.1) Magnesium Level 2.4 mg/dl (1.8-2.4) Total Creatine Kinase 282 U/L (39-308) Creatine Kinase MB 2.9 ng/ml (0.5-3.6) Troponin I < 0.015 ng/ml (0-0.045) Ethyl Alcohol mg/dL 104.0 mg/dl (0-3) Bedside Hemoglobin 14.3 g/dl (14.0-18.0) Bedside Hematocrit 42 % (42-52) Bedside Sodium 142 mEq/L (135-144) Bedside Potassium 4.2 mEq/L (3.3-5.0) Bedside Chloride 106 mEq/L (101-112) Bedside Total CO2 25 mEq/l (24-31) Anion Gap 17.0 mmol/L (16-25) Bedside Blood Urea Nitrogen 14 mg/dl (7-18) Bedside Creatinine 1.1 mg/dl (0.6-1.3) Bedside Glucose (other) 105 mg/dl (70-99) Bedside Ionized Calcium (Fab) 1.13 mmol/l (1.12-1.32) Bedside Glucose 102 mg/dl (70-99) Urine Opiates Screen NEG (NEG) Urine Methadone, Qualitative NEG (NEG) Urine Barbiturates NEG (NEG) Urine Phencyclidine (PCP) Level NEG (NEG) Ur Amphetamine/Methamphetamine NEG (NEG) MDMA (Ecstasy) Screen NEG (NEG) Urine Benzodiazepines Screen NEG (NEG) Urine Cocaine Metabolite NEG (NEG) Urine Marijuana (THC) NEG (NEG) Test 09/28/17 20:00 09/29/17 02:00 Creatine Kinase MB Ratio (0-3.0) Date/Time Source Procedure Growth Status 09/29/17 02:30 Nasal MRSA DNA Surveillance Screen - Final Specimen Negative for MRSA by DNA Probe Complete Impression This patient's presentation is worrisome for an acute infarct affecting the right anterior medulla just below the pyramidal decussation. There is an area of restricted diffusion on MRI at this location as well as an absent right vertebral flow void and diminutive right vertebral artery on CT angiography. A right vertebral artery dissection is certainly possible given his presentation with acute right-sided neck pain radiating into the occipital region. Vertebral artery vaso spasm or thrombosis are not excluded. I discussed this patient's case with the stroke specialist at [facility], Dr. Pickard, and she has agreed to accept the patient for further evaluation and management. However, it is unclear at this time if he would be a candidate for intra-arterial thrombolysis. I also discussed this patient's case with Dr. Pearl and Dr. Loredo. Plan Patient will be transferred to [facility] via [facility] which will be arranged by Dr. Pearl.
--- NOTE | 2017-09-29 15:00 | ECHOCARDIOGRAM REPORT ---
*NOTICE TO RECEIVING [employer] AGENCY This information is strictly Confidential and protected under [place] law. [place] law prohibits you from making any further disclosure of this information unless further disclosure is expressly permitted by the written consent of the person to whom it pertains or is authorized by law. A general authorization for the release of medical or other information is not sufficient for this purpose. Hospital accepts no responsibility if the information is made available to any other person, INCLUDING THE PATIENT. Interpretation Summary * Name: FARNAZ BO Study Date: 09/29/2017 10:49 AM BP: 120/69 mmHg * Patient Location: [facility]– [place] HR: 72 * : 1975 (M/d/yyyy) Gender: Male Height: 72 in * Age: 41 yrs Ethnicity: CA Weight: 293 lb * Ordering Physician: Leif Lafleur * Referring Physician: Self, Referred * Performed By: Mary Grace Nassar RDCS * * Reason For Study: Cerebral ischemia/embolus * BSA: 2.5 m2 * -- Conclusions -- * 1. Mildly dilated left ventricle with normal systolic function. EF 55-60%. No regional wall motion abnormalities. No left ventricular hypertrophy. * 2. The right ventricle is moderately dilated. The right ventricular systolic function is normal as assessed by tricuspid annular plane systolic excursion (TAPSE) (normal >1.5 cm). * 3. The left atrium is mildly dilated. * 4. No visualized ASD or PFO. There is no visualized right to left inter atrial shunt following agitated saline injection, however suboptimal image quality. * 5. No prior study available for comparison. Procedure Details * A complete two-dimensional transthoracic echocardiogram was performed (2D, M-mode, Doppler and color flow Doppler). * A saline contrast injection was performed to assess for cardiac shunting. * The injection was performed through an intravenous line in the left arm. * The attending nurse who injected the saline contrast was Vika Rawls RN. * A total of 20 cc of agitated saline was given. Left Ventricle * Mildly dilated left ventricle with normal systolic function. EF 55-60%. No regional wall motion abnormalities. No left ventricular hypertrophy. Right Ventricle * The right ventricle is moderately dilated. * The right ventricular systolic function is normal as assessed by tricuspid annular plane systolic excursion (TAPSE) (normal >1.5 cm). Atria * The left atrium is mildly dilated. * Right atrial size is normal. * No visualized ASD or PFO. There is no visualized right to left inter atrial shunt following agitated saline injection, however suboptimal image quality. Mitral Valve * The mitral valve is grossly normal. * There is no mitral valve stenosis. * Significant mitral regurgitation is absent. Tricuspid Valve * The tricuspid valve is not well visualized. * There is no tricuspid stenosis. * Significant tricuspid regurgitation is absent. Aortic Valve * The aortic valve is trileaflet. * No hemodynamically significant valvular aortic stenosis. * There is no significant aortic regurgitation. Pulmonic Valve * The pulmonary valve is inadequately visualized, but the Doppler data is adequate for interpretation. * There is no pulmonic valvular stenosis. * Trace pulmonic valvular regurgitation. Great Vessels * The aortic root is normal size. * Ascending aorta of normal dimension Pericardium/Pleural * There is no pericardial effusion. Great Vessels * Normal inferior vena cava size and collapsability with sniff indicates a normal right atrial pressure of 3 mmHg MMode 2D Measurements and Calculations IVSd 0.77 cm LVIDd 5.6 cm LVIDs 4.0 cm LVPWd 1.1 cm IVS/LVPW 0.72 FS 29.2 % EDV(Teich) 154.6 ml ESV(Teich) 68.9 ml EF(Teich) 55.4 % EDV(cubed) 177.0 ml ESV(cubed) 62.7 ml EF(cubed) 64.6 % LV mass(C)d 198.4 grams LV mass(C)dI 79.2 grams/m\S\2 SV(Teich) 85.7 ml SI(Teich) 34.2 ml/m\S\2 SV(cubed) 114.3 ml SI(cubed) 45.6 ml/m\S\2 Ao root diam 3.8 cm Ao root area 11.2 cm\S\2 ACS 2.3 cm LA dimension 3.7 cm asc Aorta Diam 3.1 cm LA/Ao 0.99 LVOT diam 2.3 cm LVOT area 4.0 cm\S\2 Doppler Measurements and Calculations MV E max delia 66.5 cm/sec MV A max delia 67.3 cm/sec MV E/A 0.99 MV dec time 0.21 sec Ao V2 max 85.6 cm/sec Ao max PG 2.9 mmHg Ao max PG (full) 1.7 mmHg JAVED(V,A) 2.6 cm\S\2 JAVED(V,D) 2.6 cm\S\2 LV V1 max PG 1.3 mmHg LV V1 max 56.0 cm/sec PA V2 max 94.0 cm/sec PA max PG 3.5 mmHg PA acc slope 410.9 cm/sec\S\2 PA acc time 0.17 sec PI max delia 125.1 cm/sec PI max PG 6.3 mmHg PI dec slope 156.5 cm/sec\S\2 PI P1/2t 234.1 msec PA pr(Accel) 4.0 mmHg
[2017-09-29] MEDS ORDERED: ASPEC325 PO (17:56)
--- NOTE | 2017-09-29 18:00 | Discharge Summary ---
Discharge Summary Date of Service Sep 29, 2017. 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 Consultations: I had discussions today with Dr. Mccabe and Dr. Loredo about this patient. There is concern he may have had a brainstem infarction I personally reviewed the imaging studies and did also review them with these 2 specialists I also phoned Dr. Flores at [facility] discussed the case with him and coordinated a conversation with him and Dr. Mccabe. Medication Reconciliation New Medications: Aspirin (Aspirin) 325 Mg Ectab 1 TAB PO DAILY, #1 BTL Atorvastatin (Lipitor) 40 Mg Tab 40 MG PO QAM, #30 TAB Continued Medications: Cetirizine (Zyrtec) 10 Mg Tab 10 MG PO QAM, TAB Esomeprazole Magnesium (Nexium) 20 Mg Capcr 20 MG PO DAILY, CAP Fluticasone Propionate (Nasal) (Flonase Allergy Relief) 50 Mcg/Act Spr 1 SPRAY MARIA DAILY Discharge Exam Review of Systems: Constitutional: No fever, No chills, No sweats Respiratory: No cough, No sputum, No wheezing Neurologic: + paralysis, + weakness Physical Exam: General Appearance: WD/WN, + moderate distress Eyes: normal inspection, sclerae normal Neck: supple, no JVD Respiratory/Chest: chest non-tender, lungs clear, normal breath sounds Cardiovascular: regular rate, rhythm, no murmur Abdomen / GI: normal bowel sounds, non tender, soft Neurologic/Psychiatric: alert, + motor weakness, + sensory deficit Skin: normal color, warm/dry, no rash Hospital Course 41-year-old male with acute onset of right-sided hemiplegia and right neck pain admitted and brought in as a stroke alert did receive TPA therapy concern of the patient having a brainstem infarction with description of an abnormal right vertebral artery seen on imaging study (CTA) next Discussion with specialty care with our facility at [facility] required coordination of care and the patient is will be transferred to that facility for further evaluation as he remains with fairly dense right hemiplegia despite thrombolytic therapy I personally spent 90 minutes to the intensive care unit this morning discussing the case reexamining the patient coordinate care with [facility] spent time at the patient's bedside with concern that the [facility] would render the patient with permanent right-sided weakness and lack of recovery Total Time Spent: Less than 30 minutes This includes examination of the patient, discharge planning, medication reconciliation, and communication with other providers. Discharge Instructions Please refer to the electronic Patient Visit Report (Discharge Instructions) for additional information.
[2017-09-30 08:41] LABS: HEMOGLOBIN A1C 5.4 % (4.5-5.6)
== END 2017-09-29 12:45 | disposition short-term general hospital (02) | DRG 62 ==
LOC: EDBD 18:26 → C.EDB 18:27 → C.MSICU 20:00 → EDBEDREQ 20:09 → ENRESERV 20:10
PROVIDERS: ADMIT Hospitalist; ATTEND Internal Medicine
DX: I63.8 Other cerebral infarction (principal); G81.91 Hemiplegia, unspecified affecting right dominant side; R29.703 NIHSS score 3; R51 Headache; Q27.8 Other specified congenital malformations of peripheral vascular system; K21.9 Gastro-esophageal reflux disease without esophagitis; Z72.89 Other problems related to lifestyle; Z87.891 Personal history of nicotine dependence; Z82.49 Family history of ischemic heart disease and other diseases of the circulatory system